=== PATIENT | male | born 1980 | race Caucasian/White ===

== ENCOUNTER 2021-01-22 13:38 | Emergency (ER) | payer BC, SELFPAY ==
--- NOTE | ~2021-01-22 | XR_ITS ---
EXAMINATION: XR CHEST CLINICAL INFORMATION: Cough for 3 weeks COMPARISON: None TECHNIQUE: 2 views of the chest were obtained. FINDINGS: The lungs are well expanded. There is no focal consolidation, edema, or effusion. No pneumothorax. The cardiomediastinal silhouette is within normal limits. No acute osseous abnormality. XR/XR chest 2V IMPRESSION: Clear lungs.
[2021-01-22 14:57] VITALS: BP 144/85; PULSE 92; RESP 16; TEMP 36.4; O2SAT 98; BMI 26.4
[2021-01-22 15:29] LABS: COVID-19 Test Negative (Negative)
--- NOTE | 2021-01-22 16:08 | ED_ITS ---
HPI - General Adult General Chief complaint: Upper Respiratory Symptoms Stated complaint: cough quest std Time Seen by Provider: 01/22/21 16:07 Source: patient Limitations: no limitations History of Present Illness HPI narrative: Patient presents the ER with a chronic cough over the past month cough is usually nonproductive. Patient was seen by PCP in the past was told was a viral illness. Patient has no history of tobacco use. Patient denies being on any current prescribed medications such as lisinopril. Patient denies any COVID-19 exposure. No nausea vomiting fever chills. Patient also requesting to get tested for herpes as he was with a partner recently at this time patient has no herpetic lesions in the facial area or groin. No other complaints at this time. Related Data Previous Rx's Medication Instructions Recorded albuterol sulfate 90 mcg/actuation 2 puff INHALATION Q6H PRN #6.7 g 01/22/21 aerosol inhaler (ProAir HFA) prednisone 20 mg tablet 40 mg PO DAILY 5 Days #10 tab 01/22/21 Allergies Allergy/AdvReac Type Severity Reaction Status Date / Time No Known Allergies Allergy Verified 01/22/21 15:01 [No Known Allergies*] Review of Systems Constitutional: Constitutional: Denies chills, Denies fatigue, Denies fever(s) and Denies headache(s) ENT: Denies headache(s) and Denies sore throat Cardiovascular: Cardiovascular: Denies chest pain and Denies dyspnea Respiratory: Respiratory: Reports cough and Denies dyspnea Gastrointestinal: Gastrointestinal: Denies diarrhea, Denies nausea and Denies vomiting Musculoskeletal: Musculoskeletal: Denies back pain Neurologic: Denies headache(s) Endocrine: Endocrine: Denies fatigue [facility] Past Medical History Attestation statement: The following information was validated with the patient. Surgical History History of back surgery Social History Social History Advance Directives: No Advance Directives Information Provided: Yes Physical Exam Vital Signs: Vital Signs: Last Vital Signs Temp 97.5 F 01/22/21 14:57 Pulse 92 01/22/21 14:57 Resp 16 01/22/21 14:57 BP 144/85 H 01/22/21 14:57 Pulse Ox 98 01/22/21 14:57 BMI result Body Mass Index 26.4 vital signs have been reviewed as normal and appeared to be correct. Blood pressure normal. Heart rate normal. Respiration rate normal. Temperature normal. Oxygen saturation normal. Appearance: Alert. Oriented X3. No acute distress. Head: Normal external exam. Normocephalic. Atraumatic. Eyes: PERRLA. EOMI. Conjunctiva and sclera normal. Eyelids normal. ENT: Pharynx normal. Uvula midline. Moist mucous membranes. No herpetic lesions noted no oral cavity Neck: Soft full range of motion, no JVD CVS: Heart regular rate and rhythm no murmurs and rubs Respiratory: Breath sounds are otherwise clear possibly faint wheeze no accessory muscle use. : Patient denies penile discharge does not want to be examined at this time denies any lesions in that area Back: Full range of motion noted. Skin: Skin warm and dry. Normal skin color. Normal skin turgor. No rashes/lesions/lacerations noted. Extremities: No lower extremity edema. Extremities exhibit normal range of motion. Extremities nontender. Neuro: Oriented X 3. No motor deficit. No sensory deficit. Reflexes normal. Course Course Course Narrative: COVID-19 Viral URI Chronic cough Bronchitis Pneumonia Herpes Patient requesting to be tested for herpes as he is with a new partner recently denies any recent lesions or past history of herpes. Will check lab tests at this time patient understands takes 24-48 hours for those results and I will look all positive results. Chronic cough is symptoms are consistent with reactive airway disease will put patient on an inhaler at this time a short course of prednisone. Medical Decision Making Lab Data Labs: Lab Results 01/22/21 Range/Units 15:09 COVID-19 (JUWAN) Negative (Negative) COVID-19 Clin Com See Note Discharge Plan Discharge Clinical Impression: Upper respiratory infection Qualifiers: URI type: unspecified viral URI Qualified Code(s): J06.9 - Acute upper respiratory infection, unspecified Patient Disposition: Home, Self-Care Instructions: Upper Respiratory Infection (ED) Additional Instructions: They will only call you if herpes test if it is positive 24-48 hours Medication as directed Follow-up with PCP Prescriptions: New prednisone 20 mg tablet 40 mg PO DAILY 5 Days Qty: 10 RF: 0 albuterol sulfate [ProAir HFA] 90 mcg/actuation HFA aerosol inhaler 2 puff inhalation Q6H PRN (Reason: wheezing) Qty: 6.7 RF: 0
[2021-01-24 05:01] LABS: Herpes Simplex Type 2 IgG <0.90 index
== END 2021-01-22 16:26 | disposition home or self-care (01) ==
PROVIDERS: Physician Assistant; Emergency Provider Emergency Medicine; PCP Nurse Practitioner Family
DX: J06.9 Acute upper respiratory infection, unspecified (principal); B00.9 Herpesviral infection, unspecified; Z20.822 Contact with and (suspected) exposure to COVID-19
CPT/HCPCS: 36415; 71046; 86695; 86696; 87635; 99283

== ENCOUNTER 2021-05-15 20:16 | Emergency (ER) | payer BC, SELFPAY ==
--- NOTE | 2021-05-15 | ECG_ITS ---
Test Reason : CX TIGHTNESS Blood Pressure : / mmHG Vent. Rate : 072 BPM Atrial Rate : 072 BPM P-R Int : 206 ms QRS Dur : 098 ms QT Int : 362 ms P-R-T Axes : 059 074 036 degrees QTc Int : 396 ms Normal sinus rhythm Normal ECG When compared with ECG of 15-OCT-2005 12:36, No significant change was found Referred By: Generic ED Physician Electronically Signed By:FABIANO BRITT
--- NOTE | ~2021-05-15 | XR_ITS ---
EXAMINATION: XR CHEST CLINICAL INFORMATION: Chest pain COMPARISON: 01/22/2021 TECHNIQUE: 2 views of the chest were obtained. FINDINGS: No significant abnormality is noted involving the heart, lungs, mediastinum, bony thorax or soft tissues. XR/XR chest 2V IMPRESSION: Unremarkable examination.
[2021-05-15 20:50] VITALS: BP 128/76; PULSE 86; RESP 14; TEMP 37.1; O2SAT 97; BMI 28.1
[2021-05-15 21:24] LABS: MANUAL DIFF FLAG NO
[2021-05-15 21:26] LABS: Basophils Percent Auto 0.4 % (0-2); Eosinophils Absolute Auto 0.3 X10*3/uL (0.0-0.4); Eosinophils Percent Auto 4.6 % (0-4); Hematocrit 41.8 % (42.0-52.0); Imm Gran Abs Auto 0.02 X10*3/uL (0.00-0.03); Imm Gran Pct Auto 0.3 % (0.0-0.4); Lymphocytes Absolute Auto 2.2 X10*3/uL (1.2-4.9); Lymphocytes Percent Auto 32.4 % (20-40); Mean Corpuscular HGB Conc 33.5 g/dl (31.0-36.0); Mean Corpuscular Hemoglobin 28.7 pg (27.0-33.0); Mean Corpuscular Volume 85.7 fL (80.0-98.0); Mean Platelet Volume 10.2 fL (9.4-12.4); Monocytes Absolute Auto 0.7 X10*3/uL (0.1-1.2); Monocytes Percent Auto 10.3 % (2-11); Neutrophils Absolute Auto 3.5 x10*3/uL (2.0-8.3); Platelet Count 272 X10*3/uL (160-400); Red Blood Count 4.88 X10*6/uL (4.60-5.80); Red Cell Distribution Width 11.5 % (11.0-16.0); White Blood Count 6.7 X10*3/uL (4.8-10.8)
[2021-05-15 21:42] LABS: Alanine Aminotransferase 25 U/L (0-40); Albumin Level 4.2 g/dL (3.5-5.0); Alkaline Phosphatase 64 U/L (39-117); Anion Gap 11 (12-20); Aspartate Amino Transferase 17 U/L (5-37); Bilirubin Direct < 0.2 mg/dL (0.0-0.5); Bilirubin Total 0.2 mg/dL (0.0-1.0); Blood Urea Nitrogen 10 mg/dL (9-16); Calcium 9.7 mg/dL (8.4-10.2); Carbon Dioxide 28 mmol/L (22-29); Chloride 103 mmol/L (96-108); Creatinine Clr Calc Pharmacy 100.4; Estimated Glomerular Filt Rate > 60; Glucose Random 125 mg/dL (60-115); Lipase 18 U/L (8-78); Potassium 3.4 mmol/L (3.3-5.1); Sodium 139 mmol/L (135-145); Total Protein 6.7 g/dL (6.5-8.0)
[2021-05-15 21:48] LABS: Troponin-I High Sensitivity < 3.5 ng/L (<3.5-35.0)
== END 2021-05-16 02:39 | disposition left against medical advice (07) ==
PROVIDERS: Emergency Provider Emergency Medicine
DX: R07.9 Chest pain, unspecified (principal); J45.909 Unspecified asthma, uncomplicated; Z79.899 Other long term (current) drug therapy
CPT/HCPCS: 36415; 71046; 80053; 82248; 83690; 84484; 85025; 93005; 99283

== ENCOUNTER 2022-11-21 22:37 | Emergency (ER) | payer OTHER, SELFPAY ==
[2022-11-21 23:58] VITALS: BP 149/89; PULSE 79; RESP 16; TEMP 37.1; O2SAT 97; BMI 29.0
[2022-11-22 00:51] VITALS: BP 138/87; PULSE 75; RESP 16; TEMP 36.7; O2SAT 98
--- NOTE | 2022-11-22 00:53 | MHC.EDTECH ---
THIS PCT JUST ASSUMED CARE OF PT ,BLOOD DRAWN AND SENT TO LAB ,VITALS TAKEN ,PT RESTING QUIETLY IN BED .
--- NOTE | 2022-11-22 01:04 | ED.GENADULT ---
HPI - General Adult General Chief complaint: Skin/Abscess/Foreign Body Stated complaint: ?abscess Time Seen by Provider: 11/22/22 00:44 Source: patient, RN notes reviewed and old records reviewed Mode of arrival: ambulatory Limitations: no limitations History of Present Illness HPI narrative: 41-year-old male presents for evaluation of redness, pain to his left armpit. His symptoms started 2-3 days ago He denies any trauma to the area Denies any fevers chills He has 6/10 pain is worse with movement The patient is not a diabetic Denies any history of similar Related Data Previous Rx's Medication Instructions Recorded albuterol sulfate 90 mcg/actuation 2 puff inhalation Q6H PRN wheezing 01/22/21 aerosol inhaler (ProAir HFA) #6.7 grams prednisone 20 mg tablet 40 mg (2 x 20 mg) PO DAILY 5 days 01/22/21 #10 tabs cephalexin 500 mg capsule 500 mg PO QID #28 caps 11/22/22 Allergies Allergy/AdvReac Type Severity Reaction Status Date / Time No Known Allergies Allergy Verified 01/22/21 15:01 [No Known Allergies*] Review of Systems Constitutional: Constitutional: Denies chills and Denies fever(s) ENT: Denies vertigo and Denies dizziness Cardiovascular: Cardiovascular: Denies chest pain Respiratory: Respiratory: Denies cough Gastrointestinal: Gastrointestinal: Denies nausea and Denies vomiting Integumentary/Breasts: Skin/Breast: Reports erythema Neurologic: Denies vertigo and Denies dizziness PMFSH Past Medical History Surgical History History of back surgery Social History Social History Advance Directives: No Advance Directives Information Provided: No Physical Exam ED Vital Signs: Vital Signs - 24 hr 11/21/22 23:58 11/22/22 00:51 Temperature 98.8 F 98.0 F Pulse Rate 79 75 Respiratory Rate 16 16 Blood Pressure 149/89 H 138/87 Pulse Oximetry 97 98 Oxygen Delivery Method Room Air Room Air BMI result Body Mass Index 29.0 Const General: healthy appearing, comfortable, no acute distress, alert and awake Nutritional Appearance: well nourished Orientation/consciousness: patient oriented x3 HENMT Head: Yes normocephalic and Yes atraumatic Eyes Eyelids: Yes eyelids normal Conjunctivae: conjunctivae normal Sclerae: sclerae normal Corneas: corneas normal Pupils: Equal, round and reactive pupils present EOM: EOMs intact bilaterally Neck Neck: Yes full ROM Resp Effort & Inspection: normal respiratory effort, able to speak in complete sentences and not labored Cardio Rate: regular rate Rhythm: regular rhythm Skin Other: Patient has a quarter-size area of erythema with fluctuance to the left axilla. The area is tender to palpation. No open wounds or drainage, no streaking redness General skin exam: elasticity normal Neuro General: patient oriented x3 Cranial nerves: Yes Equal, round and reactive pupils present and Yes Bilaterally intact EOM present Cognition (Neuro): normal cognition Extrem Other: Moving all extremities well without any obvious deformities Medical Decision Making Medical Decision Making MDM Narrative: 41-year-old male presents for evaluation of an early axilla. The area is fluctuant. It appears amenable to incision and drainage. I recommended incision and drainage but the patient declines at this time. He would prefer to trial oral antibiotics and warm compresses. I gave him strict return precautions. He has no systemic symptoms, it appears to be a very local infected Differential Diagnosis Differential Diagnoses: The differential diagnosis associated with the presentation includes Cellulitis Abscess Sebaceous cyst Epidermal inclusion cyst Lab Data MDM Lab Attestation statement: I reviewed the patient's lab results. No leukocytosis, no anemia. No electrolyte abnormalities. 11/22/22 00:41 11/22/22 00:41 Labs: Lab Results 11/22/22 Range/Units 00:41 WBC 7.2 (4.8-10.8) X10*3/uL RBC 5.01 (4.60-5.80) X10*6/uL Hgb 14.7 (14.0-18.0) g/dl Hct 42.9 (42.0-52.0) % MCV 85.6 (80.0-98.0) fL MCH 29.3 (27.0-33.0) pg MCHC 34.3 (31.0-36.0) g/dl RDW 11.8 (11.0-16.0) % Plt Count 276 (160-400) X10*3/uL MPV 10.2 (9.4-12.4) fL Immature Gran % (Auto) 0.3 (0.0-0.4) % Neut % (Auto) 49.0 (45-73) % Lymph % (Auto) 35.9 (20-40) % Gibson % (Auto) 10.5 (2-11) % Eos % (Auto) 3.9 (0-4) % Baso % (Auto) 0.4 (0-2) % Lymph # (Auto) 2.6 (1.2-4.9) X10*3/uL Gibson # (Auto) 0.8 (0.1-1.2) X10*3/uL Eos # (Auto) 0.3 (0.0-0.4) X10*3/uL Baso # (Auto) 0.0 (0.0-0.2) X10*3/uL Abs Immat Gran (auto) 0.02 (0.00-0.03) X10*3/uL Absolute Neuts (auto) 3.5 (2.0-8.3) x10*3/uL Absolute Nucleated RBC 0.000 (0.0-0.012) X10*3/uL Nucleated RBC % (auto) 0.0 (0.0-0.2) /100WBC Sodium 140 (135-145) mmol/L Potassium 3.6 (3.3-5.1) mmol/L Chloride 105 (96-108) mmol/L Carbon Dioxide 23 (22-29) mmol/L Anion Gap 16 (12-20) BUN 11 (9-16) mg/dL Creatinine 0.88 (0.5-1.4) mg/dL Estim Creat Clear Calc 112.1 Estimated GFR > 60 Random Glucose 120 H (60-115) mg/dL Calcium 9.8 (8.4-10.2) mg/dL Total Bilirubin 0.3 (0.0-1.0) mg/dL AST 18 (5-37) U/L ALT 26 (0-40) U/L Alkaline Phosphatase 77 (39-117) U/L Total Protein 7.3 (6.5-8.0) g/dL Albumin 4.3 (3.5-5.0) g/dL Discharge Plan Discharge Clinical Impression: Abscess of skin or subcutaneous tissue Patient Disposition: Home, Self-Care Instructions: Abscess (ED) Additional Instructions: You appear to have a skin infection/developing abscess to the left axilla/armpit You declined incision and drainage today Take the antibiotic as directed. Use warm compresses every 4 hours for 10-15 minutes to the affected area Return for new or worsening symptoms especially develop a fever, significantly/rapidly spreading redness Or return if after a few days her symptoms have not begun to improve Prescriptions: New cephalexin 500 mg capsule 500 mg PO QID Qty: 28 0RF No Action prednisone 20 mg tablet 40 mg PO DAILY 5 Days Qty: 10 0RF albuterol sulfate [ProAir HFA] 90 mcg/actuation HFA aerosol inhaler 2 puff inhalation Q6H PRN (Reason: wheezing) Qty: 6.7 0RF
== END 2022-11-22 01:21 | disposition home or self-care (01) ==
PROVIDERS: Emergency Provider Emergency Medicine
DX: L02.412 Cutaneous abscess of left axilla (principal); Z79.899 Other long term (current) drug therapy
CPT/HCPCS: 36415; 80053; 85025; 99283

== ENCOUNTER 2022-11-23 18:13 | Emergency (ER) | payer OTHER, SELFPAY ==
[2022-11-23 19:23] VITALS: BP 142/85; PULSE 82; RESP 16; TEMP 36.9; O2SAT 98; BMI 29.8
--- NOTE | 2022-11-23 19:23 | ED_ITS ---
HPI - General Adult General Chief complaint: Skin/Abscess/Foreign Body Stated complaint: ? Cyst underarm Time Seen by Provider: 11/23/22 21:11 Source: patient Mode of arrival: ambulatory History of Present Illness HPI narrative: Patient is 40-year-old male presents emergency department for evaluation of a left after axillary abscess for the past 4 days. He reports 2 days ago coming to emergency department any was started on a course of cephalexin. He reports some improvement in his pain and mild decrease in the redness and swelling since then but he was advised to return to have the wound re-evaluated. He he denies any active drainage, pain with movement of the shoulder, fevers, chills, streaking. He denies any additional skin rashes or lesions. Related Data Previous Rx's Medication Instructions Recorded albuterol sulfate 90 mcg/actuation 2 puff inhalation Q6H PRN wheezing 01/22/21 aerosol inhaler (ProAir HFA) #6.7 grams prednisone 20 mg tablet 40 mg (2 x 20 mg) PO DAILY 5 days 01/22/21 #10 tabs cephalexin 500 mg capsule 500 mg PO QID #28 caps 11/22/22 Allergies Allergy/AdvReac Type Severity Reaction Status Date / Time No Known Allergies Allergy Verified 01/22/21 15:01 [No Known Allergies*] Review of Systems Review of Systems: Yes all other systems are reviewed and are negative PMFSH Past Medical History Attestation statement: The following information was validated with the patient. Source: old records reviewed Surgical History History of back surgery Social History Social History Advance Directives: No Advance Directives Information Provided: No Physical Exam ED Vital Signs: Vital Signs - 24 hr 11/23/22 19:23 11/23/22 21:13 11/23/22 21:16 Temperature 98.5 F 98.2 F 98 F Pulse Rate 82 84 60 Respiratory Rate 16 19 18 Blood Pressure 142/85 H 141/87 H 127/78 Pulse Oximetry 98 100 98 Oxygen Delivery Method Room Air Room Air Room Air BMI result Body Mass Index 29.8 Appearance: Alert.?Oriented to person, place and time. No acute distres s.?Normal affect. Neck: Normal inspection.? Neck supple.?? CVS: Heart sounds normal. Normal heart rate and rhythm.? Pulses normal.?? Respiratory: No respiratory distress.? Lung sounds clear to auscultation bilaterally?? Abdomen: Soft and non-tender. Skin: Skin warm and dry.? Normal skin color.? Left axilla with nickel sized area of erythema and central fluctuance tenderness upon palpation with no streaking, or active drainage. No axillary lymphadenopathy. ? Neuro: Moves all extremities spontaneously. Sensation intact bilaterally. Ambulates with normal steady gait. Course Course Course Narrative: This is an RME: Additional HPI, ROS, PE not included below will be deferred to primary provider. This is a [id number]-male presenting to the ER with complaints of left axillary abscess x 4 days. Patient was seen here 2 days ago for this and was started on Keflex. He has been compliant with his antibiotics however reports that his symptoms are not improving. Denies any fevers or chills. He was advised to get an incision and drainage which he declined at the time. He is amenable to have this incised today. Quarter-size area of erythema with fluctuance to the left axilla with tenderness palpation, no drainage, no streaking. Vital signs stable. Plan: I&D Medications Administered Discontinued Medications Generic Name Dose Route Start Last Admin Trade Name Gentryq PRN Reason Stop Dose Admin Lidocaine HCl 5 ml 11/23/22 23:13 11/24/22 00:17 Lidocaine Hcl 1 % Mpf 5 Ml Vial SUBCUT 11/23/22 23:14 5 ml ONCE ONE Administration Procedures Abscess I/D Site: other (Axilla) Side (if applicable): left Local Anesthetic: lidocaine 1% Amount of anesthesia used (mL): 1 Technique: incised with blade Sent for culture/gram staining?: No Irrigation: Yes Packing used?: none Medical Decision Making Medical Decision Making MDM Narrative: Patient is a 41-year-old male presenting to the emergency department for evaluation of abscess to the left axilla with central fluctuance. He has been on oral antibiotics for the past 2 days. It was initially recommended that he have incision and drainage however he declined. He has returned as it has not resolved at this time and he was amenable to incision and drainage. See procedure note for further detail. Advised continued course of antibiotics, warm moist compresses/showers, and return precautions including signs of infection. At this time he has no systemic symptoms; nontoxic afebrile. Stable for discharge home. Differential Diagnosis Differential Diagnoses: The differential diagnosis associated with the presentation includes (Cellulitis, abscess, sebaceous cyst, folliculitis) Tests considered The following testing was considered but not selected: I considered repeat serum labs, no signs of systemic toxicity, labs obtained 11/18/2022 without significant abnormality, further labs deferred at this time. Prescription Management I considered prescription management with: Antibiotic (Continued use of cephalexin as previously prescribed.) Discharge Plan Discharge Clinical Impression: Abscess of skin or subcutaneous tissue Patient Disposition: Home, Self-Care Instructions: Abscess (ED), Incision and Drainage (ED) Prescriptions: No Action prednisone 20 mg tablet 40 mg PO DAILY 5 Days Qty: 10 0RF albuterol sulfate [ProAir HFA] 90 mcg/actuation HFA aerosol inhaler 2 puff inhalation Q6H PRN (Reason: wheezing) Qty: 6.7 0RF cephalexin 500 mg capsule 500 mg PO QID Qty: 28 0RF Interventions: ED Discharge Assessment Last Done: 11/24/22 00:44 Discharge Date/Time: 11/24/22 01:04
[2022-11-23 21:13] VITALS: BP 141/87; PULSE 84; RESP 19; TEMP 36.8; O2SAT 100
[2022-11-23 21:16] VITALS: BP 127/78; PULSE 60; RESP 18; TEMP 36.6; O2SAT 98
== END 2022-11-24 01:04 | disposition home or self-care (01) ==
PROVIDERS: Emergency Provider Internal Medicine
DX: L02.412 Cutaneous abscess of left axilla (principal)
CPT/HCPCS: 10060; 99282; 99284

== ENCOUNTER 2023-05-30 08:42 | Emergency (ER) | payer OTHER, SELFPAY ==
[2023-05-30 08:50] VITALS: BP 146/92; PULSE 84; RESP 18; TEMP 36.7; O2SAT 97; BMI 29.7
--- NOTE | 2023-05-30 09:31 | ED.GENADULT ---
HPI - General Adult General Chief complaint: General Medical Stated complaint: Vertigo? Reaction to meds Time Seen by Provider: 05/30/23 09:08 Source: patient and RN notes reviewed Mode of arrival: ambulatory Limitations: no limitations History of Present Illness HPI narrative: This is a 42-year-old male, with a history of depression, presents to the emergency department with complaints of intermittent dizziness x 4 days. Patient states that he has noticed that since last week he has had intermittent episodes of dizziness. He describes his dizziness as if he is on a boat. He states that he recently had an increase in his duloxetine, reports that he was increased from 40 mg to 60 mg approximately 3 weeks ago. He also admits that he was sick with a upper respiratory infection last week. He denies any current dizziness. He states that at times positional changes can worsen the dizziness. He states that he has a history of vertigo and states that his symptoms are similar however less severe. He is currently asymptomatic at this time. He denies any fevers, chills, chest pain, shortness of breath, headaches, abdominal pain, nausea, vomiting or diarrhea. He is not on blood thinners. No other complaints or concerns at this time. MD complaint: Dizziness Onset (ago): day(s) Location: head Radiation: non-radiation Severity: moderate Pain Consistency: constant Relieving factors: none Exacerbating factors: none Associated symptoms: denies other symptoms Treatments prior to arrival: none Related Data Previous Rx's ?Medication ?Instructions ?Recorded albuterol sulfate 90 mcg/actuation 2 puff inhalation Q6H PRN wheezing 01/22/21 aerosol inhaler (ProAir HFA) #6.7 grams prednisone 20 mg tablet 40 mg (2 x 20 mg) PO DAILY 5 days 01/22/21 #10 tabs cephalexin 500 mg capsule 500 mg PO QID #28 caps 11/22/22 meclizine 12.5 mg tablet 12.5 mg PO TID PRN dizziness #10 05/30/23 tabs Allergies Allergy/AdvReac Type Severity Reaction Status Date / Time No Known Allergies Allergy Verified 05/30/23 08:50 [No Known Allergies*] Review of Systems Review of Systems: Yes all other systems are reviewed and are negative Constitutional: Constitutional: Reports as per HPI COUNT INCLUDES [facility] Past Medical History Surgical History History of back surgery Social History Social History Advance Directives: No Advance Directives Information Provided: Yes Physical Exam ED Vital Signs: Vital Signs - 24 hr 05/30/23 08:50 05/30/23 11:08 05/30/23 11:10 Temperature 98.0 F Pulse Rate 84 72 77 Respiratory Rate 18 Blood Pressure 146/92 H 144/89 H 144/90 H Pulse Oximetry 97 Oxygen Delivery Method Room Air 05/30/23 11:13 Temperature Pulse Rate 83 Respiratory Rate Blood Pressure 137/91 H Pulse Oximetry Oxygen Delivery Method BMI result Body Mass Index 29.7 Const General: cooperative, comfortable and no acute distress Orientation/consciousness: patient oriented x3 Limitations: no limitations HENMT Other: Bilateral TMs was scar tissue noted, no canal erythema, TMs nonbulging. Head: Yes normal to inspection, Yes normocephalic and Yes atraumatic Ears: hearing grossly normal bilaterally General nose exam: Normal external nose present Face and sinus: Yes normal facial exam Mouth: Normal oral and palatal mucosa present, oropharynx normal and moist mucous membranes Throat: Yes posterior oropharynx normal Eyes General: appearance normal, both eyes and all related structures Eyelids: Yes eyelids normal Conjunctivae: conjunctivae normal Sclerae: sclerae normal Pupils: Equal, round and reactive pupils present EOM: EOMs intact bilaterally Neck Neck: Yes normal visual inspection, Yes full ROM and Yes no lymphadenopathy Lymphatic: no lymphadenopathy noted Chest Chest palpation & inspection: normal inspection of the chest Resp Effort & Inspection: normal respiratory effort and able to speak in complete sentences Auscultation: clear to auscultation bilaterally, no crackles, no rales, no rhonchi and no wheezes Cardio Rate: regular rate Rhythm: regular rhythm Heart sounds: S1 normal heart sound present and S2 normal heart sound present GI Inspection: Yes normal to inspection Skin General skin exam: no rashes or lesions noted Trauma: no lacerations or abrasions Wounds: no wounds Neuro General: patient oriented x3 and moves all extremities Cranial nerves: Yes CN's II-XII intact bilaterally and Yes Equal, round and reactive pupils present Cognition (Neuro): normal cognition Gait exam (Neuro): Normal gait present Motor exam (neuro): 5/5 motor strength present throughout and Pronator motor function not present Extrem General: Yes normal to inspection Right upper extremity: normal to inspection Left upper extremity: normal to inspection Right lower extremity: normal to inspection Left lower extremity: normal to inspection Course Reevaluation(s) Reevaluation #1: Labs return, no leukocytosis, stable H&H, chemistry within normal limits, negative troponin. Negative viral swabs. EKG normal sinus rhythm with no ST elevation or depression. Patient asymptomatic during my discussion of workup today. States that it only occurs with positional changes, discussed that this may be due to Eustachian tube dysfunction and/or vertigo. Discussed we can trial meclizine. He is willing to try however does not want to stay in the emergency room any longer, and requested discharge. Given strict return precautions. He understands and agrees with plan. Patient stable for discharge. Time: 11:15 Medical Decision Making Medical Decision Making [facility] Narrative: This is a 42-year-old male, history of depression on duloxetine, who presents emergency department with complaints of dizziness x5 days. Patient states that his psychiatrist recently increased his duloxetine 3 weeks ago. He also states that he was sick with a URI last week. On arrival, patient mildly hypertensive at 146/92, all other vital signs within normal limits. He is neurologically intact with no focal deficits on examination. He is asymptomatic during my assessment. He is ambulatory with steady gait. Differential diagnoses include electrolyte derangement, adverse medication side effect, Eustachian tube dysfunction, URI, dehydration, arrhythmia-unlikely, ACS-unlikely, ICH-unlikely. He has not on blood thinners, no head strike or trauma. He has a history of vertigo and states that his symptoms are similar however less severe. Plan: Labs, EKG, viral swabs Differential Diagnosis Differential Diagnoses: The differential diagnosis associated with the presentation includes See above Lab Data [facility] Lab Attestation statement: I reviewed the patient's lab results. 05/30/23 10:02 05/30/23 10:02 Labs: Lab Results 05/30/23 Range/Units 10:02 WBC 6.0 (4.8-10.8) X10*3/uL RBC 5.37 (4.60-5.80) X10*6/uL Hgb 15.5 (14.0-18.0) g/dl Hct 45.8 (42.0-52.0) % MCV 85.3 (80.0-98.0) fL MCH 28.9 (27.0-33.0) pg MCHC 33.8 (31.0-36.0) g/dl RDW 11.5 (11.0-16.0) % Plt Count 267 (160-400) X10*3/uL MPV 10.7 (9.4-12.4) fL Immature Gran % (Auto) 0.3 (0.0-0.4) % Neut % (Auto) 55.5 (45-73) % Lymph % (Auto) 28.4 (20-40) % [place] % (Auto) 11.4 H (2-11) % Eos % (Auto) 3.9 (0-4) % Baso % (Auto) 0.5 (0-2) % Lymph # (Auto) 1.7 (1.2-4.9) X10*3/uL [place] # (Auto) 0.7 (0.1-1.2) X10*3/uL Eos # (Auto) 0.2 (0.0-0.4) X10*3/uL Baso # (Auto) 0.0 (0.0-0.2) X10*3/uL Abs Immat Gran (auto) 0.02 (0.00-0.03) X10*3/uL Absolute Neuts (auto) 3.3 (2.0-8.3) x10*3/uL Absolute Nucleated RBC 0.000 (0.0-0.012) X10*3/uL Nucleated RBC % (auto) 0.0 (0.0-0.2) /100WBC Sodium 139 (135-145) mmol/L Potassium 3.7 (3.3-5.1) mmol/L Chloride 102 (96-108) mmol/L Carbon Dioxide 29 (22-29) mmol/L Anion Gap 12 (12-20) BUN 11 (9-16) mg/dL Creatinine 0.87 (0.5-1.4) mg/dL Estim Creat Clear Calc 113.5 Estimated GFR > 60 Random Glucose 89 (60-115) mg/dL Calcium 9.8 (8.4-10.2) mg/dL Magnesium 2.2 (1.6-2.6) mg/dL Total Bilirubin 0.4 (0.0-1.0) mg/dL Direct Bilirubin 0.2 (0.0-0.5) mg/dL AST 20 (5-37) U/L ALT 25 (0-40) U/L Alkaline Phosphatase 67 (39-117) U/L Troponin I High Sens < 2.7 (<3.5-35.0) ng/L Total Protein 7.3 (6.5-8.0) g/dL Albumin 4.4 (3.5-5.0) g/dL Influenza Type A (PCR) NEGATIVE (Negative) Influenza Type B (PCR) NEGATIVE (Negative) RSV RNA Qual (PCR) NEGATIVE (Negative) SARS-CoV-2 RNA (RT-PCR) NEGATIVE (Negative) Radiology Impression Discussion of test interpretation with radiology: I have reviewed the radiologist's reading. Discharge Plan Discharge Clinical Impression: Dizziness, Vertigo Patient Disposition: Home, Self-Care Instructions: Vertigo (ED), Dizziness (ED) Additional Instructions: Your seen in the emergency department due to dizziness. Your labs were reassuring. Your EKG was normal. You may have dizziness due to vertigo or due to the recent illness you had. Please take meclizine as prescribed as needed for symptoms. Drink plenty of fluids get plenty of rest. You may also want to take a decongestant as this may help alleviate her symptoms. If any new or worsening symptoms occur including but not limited to worsening dizziness, severe headache, nausea, vomiting, diarrhea, please return for re-evaluation. Prescriptions: New meclizine 12.5 mg tablet 12.5 mg PO TID PRN (Reason: dizziness) Qty: 10 0RF No Action prednisone 20 mg tablet 40 mg PO DAILY 5 Days Qty: 10 0RF albuterol sulfate [ProAir HFA] 90 mcg/actuation HFA aerosol inhaler 2 puff inhalation Q6H PRN (Reason: wheezing) Qty: 6.7 0RF cephalexin 500 mg capsule 500 mg PO QID Qty: 28 0RF Stand Alone Forms: Work/School Release Print Language: Citizen Of [place]
--- NOTE | 2023-05-30 09:42 | ECG_ITS ---
Test Reason : VERTIGO Blood Pressure : / mmHG Vent. Rate : 069 BPM Atrial Rate : 069 BPM P-R Int : 162 ms QRS Dur : 094 ms QT Int : 364 ms P-R-T Axes : 059 072 051 degrees QTc Int : 390 ms Normal sinus rhythm Normal ECG When compared with ECG of 15-MAY-2021 21:05, No significant change was found Referred By: Kelly Montanez Electronically Signed By:FABIANO BRITT
[2023-05-30 10:11] LABS: MANUAL DIFF FLAG NO
[2023-05-30 10:17] LABS: Basophils Percent Auto 0.5 % (0-2); Eosinophils Absolute Auto 0.2 X10*3/uL (0.0-0.4); Eosinophils Percent Auto 3.9 % (0-4); Hematocrit 45.8 % (42.0-52.0); Hemoglobin 15.5 g/dl (14.0-18.0); Imm Gran Abs Auto 0.02 X10*3/uL (0.00-0.03); Imm Gran Pct Auto 0.3 % (0.0-0.4); Lymphocytes Absolute Auto 1.7 X10*3/uL (1.2-4.9); Lymphocytes Percent Auto 28.4 % (20-40); Mean Corpuscular HGB Conc 33.8 g/dl (31.0-36.0); Mean Corpuscular Hemoglobin 28.9 pg (27.0-33.0); Mean Corpuscular Volume 85.3 fL (80.0-98.0); Mean Platelet Volume 10.7 fL (9.4-12.4); Monocytes Absolute Auto 0.7 X10*3/uL (0.1-1.2); Monocytes Percent Auto 11.4 % (2-11); Neutrophils Absolute Auto 3.3 x10*3/uL (2.0-8.3); Neutrophils Percent Auto 55.5 % (45-73); Platelet Count 267 X10*3/uL (160-400); Red Blood Count 5.37 X10*6/uL (4.60-5.80); Red Cell Distribution Width 11.5 % (11.0-16.0)
[2023-05-30 10:27] LABS: Alanine Aminotransferase 25 U/L (0-40); Albumin Level 4.4 g/dL (3.5-5.0); Alkaline Phosphatase 67 U/L (39-117); Anion Gap 12 (12-20); Aspartate Amino Transferase 20 U/L (5-37); Bilirubin Direct 0.2 mg/dL (0.0-0.5); Bilirubin Total 0.4 mg/dL (0.0-1.0); Blood Urea Nitrogen 11 mg/dL (9-16); Calcium 9.8 mg/dL (8.4-10.2); Carbon Dioxide 29 mmol/L (22-29); Chloride 102 mmol/L (96-108); Creatinine Clr Calc Pharmacy 113.5; Estimated Glomerular Filt Rate > 60; Glucose Random 89 mg/dL (60-115); Magnesium 2.2 mg/dL (1.6-2.6); Potassium 3.7 mmol/L (3.3-5.1); Sodium 139 mmol/L (135-145); Total Protein 7.3 g/dL (6.5-8.0)
[2023-05-30 10:35] LABS: Troponin-I High Sensitivity < 2.7 ng/L (<3.5-35.0)
[2023-05-30 10:49] LABS: Influenza A PCR NEGATIVE (Negative); Influenza B PCR NEGATIVE (Negative); Resp Syncy Virus RNA Qual PCR NEGATIVE (Negative); SARS COV2 PCR INHOUSE NEGATIVE (Negative)
[2023-05-30 11:08] VITALS: BP 144/89; PULSE 72
[2023-05-30 11:10] VITALS: BP 144/90; PULSE 77
[2023-05-30 11:13] VITALS: BP 137/91; PULSE 83
[2023-05-30 11:56] VITALS: BP 151/92; PULSE 80; RESP 12; TEMP 36.6; O2SAT 98
== END 2023-05-30 11:58 | disposition home or self-care (01) ==
PROVIDERS: Physician Assistant Medical; Emergency Provider Emergency Medicine
DX: R42 Dizziness and giddiness (principal); F32.A Depression, unspecified; Z79.899 Other long term (current) drug therapy
CPT/HCPCS: 0241U; 80048; 80076; 83735; 84484; 85025; 93005; 99283

== ENCOUNTER → 2023-05-30 09:42 | Outpatient (BNV) | payer OTHER, SELFPAY | PROVIDERS: Emergency Provider Emergency Medicine; Visit Provider Internal Medicine | DX: R42 Dizziness and giddiness (principal) | CPT/HCPCS: 93010 ==

== ENCOUNTER 2024-05-04 08:54 | Outpatient (AMB) | payer OTHER, SELFPAY ==
[2024-05-04 09:03] VITALS: BMI 28.2
--- NOTE | 2024-05-04 09:03 | A.SPINEOV_ITS ---
Vital Signs 05/04/24 09:03 Height 5 ft 7 in Weight 180 lb BMI 28.2 Intake Visit Reasons: LBP Intake Note: Mr. Flaherty is here today c/o Low back pain that radiates down to the legs. 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 The patient had complaints of back pain and left leg pain at the time and underwent the procedure, had total resection of the mass and subsequent MRI follow-ups were all negative. He was discharged to follow-up. He has had back pain ever since that time centered root around his lower lumbar region and it radiates down both of his legs. It has been going on now for 25 years steadily getting worse. He has been through rigorous conservative treatment including physical therapy, completed his last set of sessions in January of last year, underwent cortisone injections at [facility]. They did want injection and he had worsening of his symptoms and he was told he was not a candidate. He saw at [facility] who did not think he was a surgical candidate and thought he would have increased back pain after the surgery. Specifically the talk was about spinal fusion and he did not think that it was a good idea. He comes in today for a 2nd opinion. He denies any other neurological complaints. No upper extremity symptoms. He does report gait imbalance. No vision loss or double vision. PMH: Has some hypertension but other than that he is healthy, denies any problem with his heart, lungs, stroke, liver, kidneys, bleeding disorders, blood clots, cancer major abdominal surgeries. Social hx: He does not smoke drink use any recreational drugs Medications: He takes Motrin 800 every day, takes an antihypertensive that he can not recall the name of Allergies: None Physical exam: Awake alert oriented no acute distress, he is able to stand up out of a chair on his own. He has well-healed incision on his lower lumbar region. I took him for a walk in the hallway and with tandem gait testing he is quite unsteady. He was falling into the urena. His overall gross motor strength reveals a little bit of weakness in the hip flexion and in the left dorsiflexion but I believe these to be pain related. Reflexes quite brisk at the biceps, triceps and patella and right Achilles. He has clonus in the right ankle. Lenin's sign in the right hand. Absent Achilles reflexes in the left. Imaging review: Lumbar MRI done at [facility] in February 2024 shows some mild degenerative disc disease at L4-5 and L5-S1 with no signs of nerve compression. There is postsurgical defect at the left L5-S1 region with signs of bone scalloping and remodeling in the S1 foramen Impression: 43-year-old gentleman with a history of schwannoma resection in the left S1 foramen in 1999 at [facility], subsequent follow-ups revealing no signs of recurrence of tumor. He has had chronic low back pain radiating down both of his leg since that time in his MRI just shows some mild degene ration of the discs with no evidence of nerve compression. This is not typically something Dr. Condon would offer spinal fusion. Dr. Ospina from [facility] also thought he would not be a good candidate for surgery. He has not responded to any of the injections at [facility] either. Unfortunately I do not think there is anything we can do for him surgically. On a side note, although he does not carry a diagnosis of neurofibromatosis, he does have signs of ataxia and hyperreflexia on the right side upper and lower extremity. I think in due diligence we should at least make sure there is not a schwannoma in the cervical spinal canal. I will order cervical MRI and call him with the results. Thank you for allowing us to care for your patient. The total time spent with this visit with this patient was 45 minutes reviewing history, physical exam, lumbar imaging review, and implementation of treatment plan or further diagnostic testing Gianni Condon MD,PhD [facility] Orders: Orders MR cervical spine wo con Today R26.0 - Ataxic gait Coding Level of Care Code New Pt Level 4 (57920) Diagnoses Ataxic gait R26.0 Back pain M54.9
--- OUTSIDE RECORDS SUMMARY | 2024-05-04 09:24 | XMS_ITS | Clinical Summary ---
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 Active ibuprofen (ADVIL,MOTRIN) 800 mg tablet Take 1 tablet (800 mg total) by mouth every 8 (eight) hours if needed for mild pain. Active DULoxetine (CYMBALTA) [address] capsule Take 1 capsule (60 mg total) by mouth 1 (one) time each day. Do not crush or chew. Active Encounters Date Type Department Care Team Description 02/10/2024 9:40 AM EST - 02/10/2024 1:[address] [facility] Emergency [address] [place] [address] Boby Sosa MD Chronic back pain, unspecified back location, unspecified back pain laterality (Primary Dx); Suicide ideation; Depression, unspecified depression type; Anxiety Discharge Disposition: Home or Self Care from Last 3 Months Surgical History Surgery Date Site/Laterality Comments HERNIA REPAIR 2002 PROCEDURE: HISTORICAL HERNIA REPAIR/ING; COMMENT: left-sided HERNIA REPAIR 2004 PROCEDURE: HISTORICAL HERNIA REPAIR/UMB BACK SURGERY 1999 PROCEDURE: HISTORICAL BACK SURGERY; COMMENT: Dr. 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) Tendon injury, late effect DX:Te ndon injury, late effect; COMMENT: left hand since injury 10/24 - surgery scheduled 02/17/10 Asthma DX:Asthma; COMME NT: no controller meds needed; never hospitalized/intubated Tendon rupture, nontraumatic, flexor 02/15/2010 DX:Tendon rupture, nontraumatic, flexor Anxiety Family History Medical History Relation Name Comments Blindness Aunt Asthma Brother 1 Cataracts Neg Hx Glaucoma Neg Hx Macular degeneration Neg Hx Strabismus Neg Hx Relation Name Status Comments Aunt Brother 1 Brother 2 Alive DMII, asthma Brother 3 Alive DMII Brother 4 Alive A&W Daughter Alive (8) A&W Father Alive HTN, ?CAD Mother Alive HTN Social History Tobacco Use Types Packs/Day Years Used Date Smoking Tobacco: Former Cigarettes Q uit: 02/14/2001 Smokeless Tobacco: Never Alcohol Use Standard Drinks/Week Comments No 0 (1 standard drink = 0.6 oz pur e alcohol) Sex and Gender Information Value Date Recorded Sex Assigned at Not on file Legal Sex Male 2:55 PM EST Gender Identity Not on file Sexual Orientation Not on file Obstetrics History Last Filed Vital Signs Vital Sign Reading Time Taken Comments Blood Pressure 153/88 02/10/2024 9:56 AM EST Pulse 91 02/10/2024 9:56 AM EST Temperature 37 ??C (98.6 ??F) 02/10/2024 9:56 AM EST Respiratory Rate 18 02/10/2024 9:56 AM EST Oxygen Saturation 100% 02/10/2024 11:00 AM EST Inhaled Oxygen Concentration - - Weight 81.6 kg (180 lb) 02/10/2024 11:51 AM EST Height 167.6 cm (5' 6 ) 02/10/2024 11:51 AM EST Body Mass Index 29.05 02/10/2024 11:51 AM EST Plan of Treatment Health Maintenance Due Date Last Done Comments Pneumococcal Vaccine: Pediatrics (0 to 5 Years) and At-Risk Patients (6 to 64 Years) (1 of 2 - PCV) 1997 Hepatitis B Vaccines (3 of 3 - 19+ 3-dose series) 08/31/2019 03/30/2019, 03/02/2019 Cholesterol Screening (Lipid Panel) 01/13/2022 Colorectal Cancer Screening: Colonoscopy 01/13/2022 Depression Screening 01/13/2022 HIV Screening 01/13/2022 Hepatitis C Screening 01/13/2022 Social Influencers of Health Screening 01/13/2022 COVID-19 Vaccine ( season) 2023 08/13/2021, 07/25/2020, 06/27/2020 Influenza Vaccine (#1) 2023 DTaP,Tdap,and Td Vaccines (5 - Td or Tdap) 08/14/2031 08/13/2021, 03/10/2011, 01/28/2010, Additional history exists MMR Vaccines Aged Out 03/02/2019 No longer eligi ble based on patient's age to complete this topic HIB Vaccines Aged Out No longer eligi ble based on patient's age to complete this topic HPV Vaccines Aged Out No longer eligi ble based on patient's age to complete this topic Hepatitis A Vaccines Aged Out No long er eligible based on patient's age to complete this topic IPV Vaccines Aged Out No longer eligi ble based on patient's age to complete this topic Meningococcal ACWY Vaccine Aged Out N o longer eligible based on patient's age to complete this topic Meningococcal B Vacine Aged Out No lo nger eligible based on patient's age to complete this topic RSV Immunization Patients Under 20 months Aged Out No longer eligible based on patient's age to complete this topic Varicella Vaccines Aged Out No longer eligible based on patient's age to complete this topic Procedures Procedure Name Priority Date/Time Associated Diagnosis Comments ECG 12-LEAD STAT 02/10/2024 10:35 AM EST CBC WITH AUTO DIFFERENTIAL STAT 02/10/2024 10:13 AM EST SALICYLATE LEVEL STAT 02/10/2024 10:1 3 AM EST ACETAMINOPHEN LEVEL STAT 02/10/2024 1 0:13 AM EST ETHANOL STAT 02/10/2024 10:13 AM EST COMPREHENSIVE METABOLIC PANEL STAT 02/10/2024 10:13 AM EST CBC AND DIFFERENTIAL STAT 02/10/2024 10:13 AM EST ECG ANNOTATED 02/10/2024 from Last 3 Months Results * ECG 12 lead (02/10/2024 10:35 AM EST) Ventricular Rate ECG 86 BPM GEMUSE Atrial Rate 86 BPM GEMUSE P-R Interval 152 ms GEMUSE QRS Duration 90 ms GEMUSE Q-T Interval 360 ms GEMUSE QTc 430 ms GEMUSE P Wave [place] 47 degrees GEMUSE R [place] 64 degrees GEMUSE T [place] 54 degrees GEMUSE ECG Interpretation Sinus rhythm with Premature atrial complexes Otherwise normal ECG When compared with ECG of 04-APR-2004 19:07, Premature atrial complexes are now Present Confirmed by Samson GONCALVES JOHN ([id number]) on 02/11/2024 6:34:14 AM GEMUSE 02/10/2024 10:3 5 AM EST 02/11/2024 6:34 AM EST Boby Jf Sosa MD ECG ORDERABLES Final Result GEMUSE * (ABNORMAL) CBC auto differential (02/10/2024 10:13 AM EST) Pathologist [facility] WBC 7.1 4.8 - 10.8 K/mcL LAB HEMETOLOGY METHOD 02/10/2024 10:42 AM [facility] RBC 5.20 4.50 - 5.50 M/mcL LAB HEMETOLOGY METHOD 02/10/2024 10:42 AM [facility] Hemoglobin 14.9 13.5 - 17.5 g/dL LAB HEMETOLOGY METHOD 02/10/2024 10:42 AM [facility] Hematocrit 44.9 42.0 - 54.0 % LAB HEMETOLOGY METHOD 02/10/2024 10:42 AM [facility] MCV 86.3 79.0 - 98.0 FL LAB HEMETOLOGY METHOD 02/10/2024 10:42 AM [facility] MCH 28.7 27.0 - 32.0 pcg LAB HEMETOLOGY METHOD 02/10/2024 10:42 AM [facility] MCHC 33.2 32.0 - 37.0 g/dL LAB HEMETOLOGY METHOD 02/10/2024 10:42 AM [facility] RDW 11.9 11.0 - 15.0 % LAB HEMETOLOGY METHOD 02/10/2024 10:42 AM [facility] Platelets 268 130 - 400 K/mcL LAB HEMETOLOGY METHOD 02/10/2024 10:42 AM [facility] MPV 10.6 7.0 - 11.0 FL LAB HEMETOLOGY METHOD 02/10/2024 10:42 AM [facility] NRBC 0.0 <1.0 % LAB HEMETOLOGY METHOD 02/10/2024 10:42 AM [facility] NRBC Absolute 0.00 <0.10 K/[facility] LAB HEMETOLOGY METHOD 02/10/2024 10:42 AM [facility] Neutrophils Relative 62.4 % LAB HEMETOLOGY METHOD 02/10/2024 10:42 AM [facility] Lymphocytes Relative 22.5 % LAB HEMETOLOGY METHOD 02/10/2024 10:42 AM [facility] Monocytes Relative 8.4 % LAB HEMETOLOGY METHOD 02/10/2024 10:42 AM [facility] Eosinophils Relative 5.4 % LAB HEMETOLOGY METHOD 02/10/2024 10:42 AM [facility] Basophils Relative 0.7 % LAB HEMETOLOGY METHOD 02/10/2024 10:42 AM [facility] Immature Granulocytes Relative 0.6 % LAB HEMETOLOGY METHOD 02/10/2024 10:42 AM [facility] Neutrophils Absolute 4.41 1.50 - 7.00 K/mcL LAB HEMETOLOGY METHOD 02/10/2024 10:42 AM EST [facility] Lymphocytes Absolute 1.59 1.00 - 5.00 K/[facility] LAB HEMETOLOGY METHOD 02/10/2024 10:42 AM EST [facility] Monocytes Absolute 0.59 0.20 - 1.00 K/[facility] LAB HEMETOLOGY METHOD 02/10/2024 10:42 AM EST [facility] Eosinophils Absolute 0.38 0.00 - 0.50 K/[facility] LAB HEMETOLOGY METHOD 02/10/2024 10:42 AM EST [facility] Basophils Absolute 0.05 0.00 - 0.20 K/[facility] LAB HEMETOLOGY METHOD 02/10/2024 10:42 AM EST [facility] Immature Granulocytes Absolute 0.04(H) 0.00 - 0.03 K/[facility] LAB HEMETOLOGY METHOD 02/10/2024 10:42 AM EST [facility] Blood Venous blood specimen / Unknown Venipuncture / Unknown 02/10/2024 10:13 AM EST 02/10/2024 10:26 AM EST Bobyanmol Sosa MD LAB BLOOD ORDERABLES Final Resu lt [facility] [address] [place] [address], * Ethanol (02/10/2024 10:13 AM EST) Ethanol Level <3 0 - 10 mg/dL LAB CHEMISTRY METHOD 02/10/2024 11:04 AM EST [facility] Blood Venous blood specimen / Unknown Venipuncture / Unknown 02/10/2024 10:13 AM EST 02/10/2024 10:26 AM EST us Boby Sosa MD LAB BLOOD ORDERABLES Final Resu lt [facility] [address] [place] [address], [place] [phone] * (ABNORMAL) Acetaminophen level (02/10/2024 10:13 AM EST) Acetaminophen Level <2.0(L) 10.0 - 30.0 mcg/mL LAB CHEMISTRY METHOD 02/10/2024 11:04 AM EST [facility] Blood Venous blood specimen / Unknown Venipuncture / Unknown 02/10/2024 10:13 AM EST 02/10/2024 10:26 AM EST us Boby Sosa MD LAB BLOOD ORDERABLES Final Resu lt [facility] [address] [place] [address], * (ABNORMAL) Salicylate level (02/10/2024 10:13 AM EST) Salicylate Level <1.7(L) 2.0 - 29.0 mg/dL LAB CHEMISTRY METHOD 02/10/2024 11:04 AM EST [facility] Blood Venous blood specimen / Unknown Venipuncture / Unknown 02/10/2024 10:13 AM EST 02/10/2024 10:26 AM EST us Boby Sosa MD LAB BLOOD ORDERABLES Final Resu lt [facility] [address] [place] [address], [place] [phone] * (ABNORMAL) Comprehensive metabolic panel (02/10/2024 10:13 AM EST) Sodium 139 133 - 145 mmol/L LAB CHEMISTRY METHOD 02/10/2024 11:23 AM EST [facility] Potassium 4.3 3.5 - 5.5 mmol/L LAB CHEMISTRY METHOD 02/10/2024 11:23 AM [facility] Chloride 104 96 - 110 mmol/L LAB CHEMISTRY METHOD 02/10/2024 11:23 AM [facility] CO2 31 21 - 32 mmol/L LAB CHEMISTRY METHOD 02/10/2024 11:23 AM [facility] Anion Gap 4 3 - 11 LAB CHEMISTRY METHOD 02/10/2024 11:23 AM [facility] Glucose 127(H) 70 - 100 mg/dL LAB CHEMISTRY METHOD 02/10/2024 11:23 AM [facility] BUN 9 5 - 25 mg/dL LAB CHEMISTRY METHOD 02/10/2024 11:23 AM [facility] Creatinine 0.99 0.70 - 1.30 mg/dL LAB CHEMISTRY METHOD 02/10/2024 11:23 AM [facility] eGFR 96 >=60 mL/min/1. 73m2 LAB CHEMISTRY METHOD 02/10/2024 11:23 AM [facility] Comment:Calculation based on the??Chronic Kidney Disease Epidemiology Collaboration (CKD-EPI) equation refit??without adjustment for race. BUN/Creatinine Ratio 9.1 LAB CHEMISTRY METHOD 02/10/2024 11:23 AM [facility] Calcium 9.5 8.5 - 10.5 mg/dL LAB CHEMISTRY METHOD 02/10/2024 11:23 AM [facility] AST (SGOT) 22 10 - 42 unit/L LAB CHEMISTRY METHOD 02/10/2024 11:23 AM [facility] ALT (SGPT) 43 10 - 60 unit/L LAB CHEMISTRY METHOD 02/10/2024 11:23 AM [facility] Alkaline Phosphatase 73 42 - 121 unit/L LAB CHEMISTRY METHOD 02/10/2024 11:23 AM [facility] Total Protein 7.0 6.0 - 8.0 g/dL LAB CHEMISTRY METHOD 02/10/2024 11:23 AM [facility] Albumin 3.9 3.2 - 5.0 g/dL LAB CHEMISTRY METHOD 02/10/2024 11:23 AM EST [facility] Total Bilirubin 0.6 0.0 - 1.4 mg/dL LAB CHEMISTRY METHOD 02/10/2024 11:23 AM EST [facility] Blood Venous blood specimen / Unknown Venipuncture / Unknown 02/10/2024 10:13 AM EST 02/10/2024 10:26 AM EST Boby Jf Sosa MD LAB BLOOD ORDERABLES Final Resu lt [facility] [address] [place] [address], * ECG-Annotated (02/10/2024) us Provider Onbase MD ECG ORDERABLES Final Result from Last 3 Months Insurance [facility] MEDICAID ADVANTAGE Care Teams Golf Club Repairer Relationship Specialty Start Date End Date Physician, No Pcp PCP - General 02/10/24
== END 2024-05-04 09:52 | disposition home or self-care (01) ==
LOC: HO.HNS 08:55
PROVIDERS: Visit Provider Physician Assistant
DX: R26.0 Ataxic gait (principal); M54.9 Dorsalgia, unspecified
CPT/HCPCS: 99204

== ENCOUNTER → 2024-05-04 08:54 | Outpatient (BNVA) | payer OTHER, SELFPAY | PROVIDERS: Visit Provider Physician Assistant | DX: R26.0 Ataxic gait (principal); M54.9 Dorsalgia, unspecified | CPT/HCPCS: 99202 ==

== ENCOUNTER 2024-05-14 21:03 | Inpatient (IN) | payer OTHER, SELFPAY ==
--- NOTE | 2024-05-14 | ECG_ITS ---
Test Reason : overdose on medications Blood Pressure : */* mmHG Vent. Rate : 95 BPM Atrial Rate : 95 BPM P-R Int : 182 ms QRS Dur : 96 ms QT Int : 336 ms P-R-T Axes : 63 63 51 degrees QTcB Int : 422 ms Sinus rhythm with Premature atrial complexes Otherwise normal ECG When compared with ECG of 30-May-2023 09:49, Premature atrial complexes are now Present Referred By: Generic ED Physician Electronically Signed By: FABIANO BRITT
[2024-05-14 21:14] VITALS: BP 149/99; BP 158/77; PULSE 90; PULSE 93; RESP 16; TEMP 36.9; O2SAT 96; O2SAT 98; BMI 28.2
--- NOTE | 2024-05-14 21:36 | PC.NURSE ---
Recommendations from Poison Control: -EKG Q2H x3, Q4H until medically cleared -Admit x24 hours due to risk of seizures -Seizure precautions -Magnesium >2 -Potassium >4 -Tylenol level -Troponin level -PT/INR -Can give Charcoal if provider wishes Give benzos if he seizes. per Ivis at Poison Control ( ) Number provided for follow up.
[2024-05-14 21:41] LABS: Appearance Urine Clear; Color Urine Yellow; Glucose Urine UA >=1000 mg/dL (Negative); Leukocyte Esterase Urine Negative (Negative); Nitrite Urine Negative (Negative); PH 5.5 (5.0-9.0); UMIC TRIGGER UA YES; Urine Blood Negative (Negative); Urine Ketones Negative (Negative); Urine Protein Negative (Neg-Trace)
[2024-05-14] MEDS: Activated charcoaL 50 GM/240 ML ORAL.SUSP PO (21:45)
[2024-05-14 21:46] LABS: Bacteria Urine None Seen (None Seen); Hyaline Casts Urine 0-2 /LPF (0-2); RBC Urine 0-2 /HPF (0-2); Squamous Epithelial Cell Urine 0-2 /HPF (0-2); WBC Urine 0-5 /HPF (0-5)
--- NOTE | 2024-05-14 22:03 | ED_ITS ---
<Statement entered by Hailee Curran PA-C - 05/15/24 13:21> I only did med rec on this patient. HPI - Overdose General Chief Complaint: Overdose Stated Complaint: SI Time Seen by Provider: 05/14/24 21:33 Source: patient and EMS Mode of arrival: EMS Limitations: no limitations History of Present Illness ED Provider: HPI Narrative: patient's history of significant depression under increased stress from financial reasons does not have any job just prior to arrival patient took cyclobenzaprine 3 tablets BuSpar 2 tablet duloxetine 2 tablets according to patient is supposed to take 2 tablets of each in a.m. but he took extra tablet tonight tonight ,, with suicidal intention denies any other medication except for ibuprofen he took 4 tablets of 800mg during daytime patient is still feel depressed no other symptoms no nausea no vomiting Related Data Home Medications ?Medication ?Instructions ?Recorded ?Confirmed aripiprazole 5 mg tablet 5 mg PO DAILY 05/15/24 05/15/24 atenolol 25 mg tablet 25 mg PO DAILY 05/15/24 05/15/24 buspirone 30 mg tablet 30 mg PO BID 05/15/24 05/15/24 cyclobenzaprine 10 mg tablet 10 mg PO BEDTIME PRN Pain 05/15/24 05/15/24 duloxetine 60 mg capsule,delayed 60 mg PO BID 05/15/24 05/15/24 release metformin 500 mg tablet 500 mg PO DAILY 05/15/24 05/15/24 Previous Rx's ?Medication ?Instructions ?Recorded albuterol sulfate 90 mcg/actuation 2 puff inhalation Q6H PRN wheezing 01/22/21 aerosol inhaler (ProAir HFA) #6.7 grams prednisone 20 mg tablet 40 mg (2 x 20 mg) PO DAILY 5 days 01/22/21 #10 tabs cephalexin 500 mg capsule 500 mg PO QID #28 caps 11/22/22 meclizine 12.5 mg tablet 12.5 mg PO TID PRN dizziness #10 05/30/23 tabs Allergies Allergy/AdvReac Type Severity Reaction Status Date / Time aripiprazole [From Abilify] Allergy Intermediate Rash Verified 05/14/24 21:16 Review of Systems 2 Review of Systems: Yes all other systems are reviewed and are negative PMFSH Past Medical History Surgical History History of back surgery Social History Social History Household Members: Children Housing: Apartment Do you presently have visiting nurse or other home services: No Alcohol intake: never Patient Tobacco Use Status: Never used Tobacco Smoked in Last 30 Days: No Use of substances other than those prescribed or required for medical reasons: No Currently Displaying Signs/Symptoms of Drug Intoxication Withdrawal: No Any prior treatment program specific to substance use: No Have you been hit, kicked, punched, or otherwise hurt by someone within the past year? If so, by whom?: No Do you feel safe in your current relationship?: Yes Is there a partner from a previous relationship who is making you feel unsafe now?: No Are you made to feel afraid or neglected: No Advance Directives: No Advance Directives Information Provided: Yes Do you have thoughts of harming others: None Do you have a plan to hurt others: No Plan Recently lost weight without trying: No How much weight loss: Not applicable Eating poorly because of decreased appetite: No Nutrition screen score: 0 Nutrition Risks: No Nutritional Risk Poor oral hygiene: No Physical Exam 2 Vital Signs: Vital Signs: Last Vital Signs Temp 97.6 F 05/15/24 20:00 Pulse 104 H 05/15/24 20:00 Resp 16 05/15/24 20:00 BP 133/86 05/15/24 20:00 Pulse Ox 96 05/15/24 20:00 O2 Del Method Room Air 05/15/24 20:00 BMI result Body Mass Index 28.2 Appearance: Alert. Oriented X3. No acute distress. Eyes: PERRLA, No Nystagmus ENT: Pharynx normal. Oral Mucosa moist Neck: Normal inspection. Neck supple. CVS: Normal heart rate and rhythm. Pulses normal. Respiratory: No respiratory distress. Equal air entry bilateral, no wheezing/rales/rhonchi Abdomen: Soft and nontender. Bowel sounds are present, no mass palpable, no CVA tenderness Skin: Skin warm and dry. Normal skin color. Normal skin turgor. Extremities: No lower extremity edema. No calf tenderness Psych: feel depressed denies current SI or HI no hallucination or delusion Neuro: Oriented X 3. No motor deficit. No sensory deficit.No cerebellar signs , cranial nerves II-XII intact Course Reevaluation(s) Reevaluation #1: DR. Helton's Progress note: 43-year-old with SI attempt, patient was medically cleared, VSS, patient now is under section 12, bed search is underway. Time: 09:23 Medications Administered Generic Name Dose Route Start Last Admin Trade Name Freq PRN Reason Stop Dose Admin Atenolol 25 mg 05/15/24 09:30 05/15/24 09:42 Atenolol 25 Mg Tablet PO 25 mg DAILY NADER Administration Protocol Bupropion HCl 150 mg 05/15/24 15:55 05/15/24 16:16 Bupropion Hcl Xl 150 Mg Tab.Er.24h PO 150 mg DAILY NADER Administration Buspirone HCl 30 mg 05/15/24 09:30 05/15/24 20:21 Buspirone Hcl 10 Mg Tablet PO 30 mg BID NADER Administration Duloxetine HCl 60 mg 05/15/24 09:30 05/15/24 20:21 Duloxetine Hcl 60 Mg Capsule.Dr PO 60 mg BID NADER Administration Hydroxyzine HCl 25 mg 05/15/24 12:25 05/15/24 16:16 Hydroxyzine Hcl 25 Mg Tablet PO 25 mg Q6H PRN Administration mild anxiety Metformin HCl 500 mg 05/15/24 09:30 05/15/24 09:42 Metformin Hcl 500 Mg Tablet PO 500 mg DAILY NADER Administration Trazodone HCl 50 mg 05/15/24 12:25 05/15/24 20:21 Trazodone Hcl 50 Mg Tablet PO 50 mg BEDTIME MRX1 PRN Administration Insomnia Discontinued Medications Generic Name Dose Route Start Last Admin Trade Name Freq PRN Reason Stop Dose Admin Aripiprazole 5 mg 05/15/24 09:30 05/15/24 09:42 Aripiprazole 5 Mg Tablet PO 5 mg DAILY NADER Administration Charcoal 50 gm 05/14/24 21:33 05/14/24 21:45 Activated Charcoal 50 Gm/240 Ml Oral.Susp PO 05/14/24 21:34 50 gm ONCE ONE Administration Medical Decision Making Medical Decision Making MDM Narrative: patient with increased depression suicidal ideation took extra tablets of cyclobenzaprine BuSpar duloxetine which are not toxic dose case discussed with poison control advised supportive treatment patient's repeat EKG also without any acute changes normal QTC interval patient is alert and awake vitals stable medically cleared to see care team Lab Data MDM Lab Attestation statement: I reviewed the patient's lab results. 05/14/24 21:57 05/15/24 12:49 Labs: Lab Results 05/14/24 05/14/24 05/14/24 Range/Units 21:26 21:57 22:04 WBC 10.0 (4.8-10.8) X10*3/uL RBC 4.75 (4.60-5.80) X10*6/uL Hgb 13.6 L (14.0-18.0) g/dl Hct 40.9 L (42.0-52.0) % MCV 86.1 (80.0-98.0) fL MCH 28.6 (27.0-33.0) pg MCHC 33.3 (31.0-36.0) g/dl RDW 12.8 (11.0-16.0) % Plt Count 310 (160-400) X10*3/uL MPV 10.1 (9.4-12.4) fL Immature Gran % (Auto) 0.7 H (0.0-0.4) % Neut % (Auto) 75.1 H (45-73) % Lymph % (Auto) 13.8 L (20-40) % [facility] % (Auto) 8.9 (2-11) % Eos % (Auto) 1.2 (0-4) % Baso % (Auto) 0.3 (0-2) % Lymph # (Auto) 1.4 (1.2-4.9) X10*3/uL [facility] # (Auto) 0.9 (0.1-1.2) X10*3/uL Eos # (Auto) 0.1 (0.0-0.4) X10*3/uL Baso # (Auto) 0.0 (0.0-0.2) X10*3/uL Abs Immat Gran (auto) 0.07 H (0.00-0.03) X10*3/uL Absolute Neuts (auto) 7.5 (2.0-8.3) x10*3/uL Absolute Nucleated RBC 0.000 (0.0-0.012) X10*3/uL Nucleated RBC % (auto) 0.0 (0.0-0.2) /100WBC PT 11.5 (10.9-12.4) SEC INR 1.0 (0.9-1.1) VBG pH 7.47 H (7.32-7.43) VBG pCO2 33 mmHg VBG pO2 96 mmHg VBG HCO3 24 (22-26) mmol/L VBG O2 Saturation 99.0 % VBG Base Excess 1.7 mmol/L Sodium 136 (135-145) mmol/L Potassium 3.6 (3.3-5.1) mmol/L Chloride 104 (96-108) mmol/L Carbon Dioxide 23 (22-29) mmol/L Anion Gap 13 (12-20) BUN 18 H (9-16) mg/dL Creatinine 0.93 (0.5-1.4) mg/dL Estim Creat Clear Calc 102.6 Estimated GFR > 60 Random Glucose 255 H (60-115) mg/dL Calcium 9.8 (8.4-10.2) mg/dL Magnesium 2.1 (1.6-2.6) mg/dL Total Bilirubin 0.2 (0.0-1.0) mg/dL AST 16 (5-37) U/L ALT 39 (0-40) U/L Alkaline Phosphatase 83 (39-117) U/L Troponin I High Sens < 2.7 (<3.5-35.0) ng/L Total Protein 6.5 (6.5-8.0) g/dL Albumin 4.0 (3.5-5.0) g/dL Urine Color Yellow Urine Appearance Clear Urine pH 5.5 (5.0-9.0) Ur Specific [place] 1.010 (1.005-1.025) Urine Protein Negative (Neg-Trace) mg/dL Urine Glucose (UA) >=1000 H (Negative) mg/dL Urine Ketones Negative (Negative) mg/dL Urine Blood Negative (Negative) Urine Nitrite Negative (Negative) Ur Leukocyte Esterase Negative (Negative) Urine RBC 0-2 (0-2) /HPF Urine WBC 0-5 (0-5) /HPF Ur Squamous Epith Cells 0-2 (0-2) /HPF Urine Bacteria None Seen (None Seen) Hyaline Casts 0-2 (0-2) /LPF Salicylates < 5.0 L (15-30) mg/dL Urine Opiates Screen Not Detected (Not Detect) Ur Buprenorphine Scrn Not Detected (Not Detect) ng/mL Ur Oxycodone Screen Not Detected (Not Detect) ng/mL Urine Methadone Screen Not Detected (Not Detect) ng/mL Urine Fentanyl Screen Not Detected (Not Detect) Acetaminophen < 3 (<30) mcg/mL Ur Barbiturates Screen Not Detected (Not Detect) Ur Phencyclidine Scrn Not Detected (Not Detect) Ur Amphetamines Screen Not Detected (Not Detect) U Benzodiazepines Scrn Not Detected (Not Detect) Urine Cocaine Screen Not Detected (Not Detect) U Marijuana (THC) Screen Not Detected (Not Detect) Ethyl Alcohol < 10 mg/dL Independent Interpretation I performed an independent interpretation of an: EKG Interpretation: normal sinus rhythm heart rate 95 beats per minute few PACs normal interval normal axis no acute STT wave changes no acute ischemia Discharge Plan Discharge Clinical Impression: Depressive disorder Patient Disposition: Admitted As Inpatient Interventions: Admission Worksheet (ED) Last Done: 05/15/24 12:11 Discharge Date/Time: 05/15/24 12:13
--- OUTSIDE RECORDS SUMMARY | 2024-05-14 22:03 | XMS_ITS | Clinical Summary ---
Author Organization [facility] Address [address] [place] [address] Phone Care Team Providers Care Pharmaceutical Compounding Supervisor Name Role Phone Physician, No Pcp Primary [...] day. Do not crush or chew. Active Surgical History Surgery Date Site/Laterality Comments HERNIA [...] on patient's age to complete this topic Insurance [employer] MEDICAID ADVANTAGE Care Teams Pharmaceutical Compounding Supervisor Relationship Specialty Start Date End Date Physician, No Pcp PCP - General 02/10/24
[2024-05-14 22:04] LABS: MANUAL DIFF FLAG NO
[2024-05-14 22:08] LABS: Basophils Percent Auto 0.3 % (0-2); Eosinophils Absolute Auto 0.1 X10*3/uL (0.0-0.4); Eosinophils Percent Auto 1.2 % (0-4); Hematocrit 40.9 % (42.0-52.0); Hemoglobin 13.6 g/dl (14.0-18.0); Imm Gran Abs Auto 0.07 X10*3/uL (0.00-0.03); Imm Gran Pct Auto 0.7 % (0.0-0.4); Lymphocytes Absolute Auto 1.4 X10*3/uL (1.2-4.9); Lymphocytes Percent Auto 13.8 % (20-40); Mean Corpuscular HGB Conc 33.3 g/dl (31.0-36.0); Mean Corpuscular Hemoglobin 28.6 pg (27.0-33.0); Mean Corpuscular Volume 86.1 fL (80.0-98.0); Mean Platelet Volume 10.1 fL (9.4-12.4); Monocytes Absolute Auto 0.9 X10*3/uL (0.1-1.2); Monocytes Percent Auto 8.9 % (2-11); Neutrophils Absolute Auto 7.5 x10*3/uL (2.0-8.3); Neutrophils Percent Auto 75.1 % (45-73); Platelet Count 310 X10*3/uL (160-400); Red Blood Count 4.75 X10*6/uL (4.60-5.80); Red Cell Distribution Width 12.8 % (11.0-16.0)
--- NOTE | 2024-05-14 22:11 | PC.NURSE ---
Spoke with Poison Control with update. Patient reported to this RN & Dr. Leonardo that he took the following medications at his home around 7pm today: Buspar (3 tablets) Cyclobenzaprine (3 tablets) Duloxetine (3 tablets) Ibuprofen 800mg Per poison control, no changes to orders or precautions. See previous note regarding recommendations. Report given to Colton BAUTISTA.
[2024-05-14 22:21] LABS: Prothrombin Time 11.5 SEC (10.9-12.4)
[2024-05-14 22:27] LABS: VBG Base Excess 1.7 mmol/L; VBG HCO3 24 mmol/L (22-26); VBG pCO2 33 mmHg; VBG pH 7.47 (7.32-7.43); VBG pO2 96 mmHg
[2024-05-14 22:32] LABS: Acetaminophen LAB < 3 mcg/mL (<30); Salicylate < 5.0 mg/dL (15-30)
[2024-05-14 22:32] LABS: Venous Blood Gas Refer to POC result
[2024-05-14 22:36] LABS: Alanine Aminotransferase 39 U/L (0-40); Alkaline Phosphatase 83 U/L (39-117); Anion Gap 13 (12-20); Aspartate Amino Transferase 16 U/L (5-37); Bilirubin Total 0.2 mg/dL (0.0-1.0); Blood Urea Nitrogen 18 mg/dL (9-16); Calcium 9.8 mg/dL (8.4-10.2); Carbon Dioxide 23 mmol/L (22-29); Chloride 104 mmol/L (96-108); Creatinine Clr Calc Pharmacy 102.6; Estimated Glomerular Filt Rate > 60; Ethanol < 10 mg/dL; Glucose Random 255 mg/dL (60-115); Potassium 3.6 mmol/L (3.3-5.1); Sodium 136 mmol/L (135-145); Total Protein 6.5 g/dL (6.5-8.0)
[2024-05-14 22:42] LABS: Troponin-I High Sensitivity < 2.7 ng/L (<3.5-35.0)
[2024-05-14 23:09] LABS: Magnesium 2.1 mg/dL (1.6-2.6)
[2024-05-14 23:12] LABS: Amphetamine Screen Urine Not Detected (Not Detect); Barbiturates, Urine Not Detected (Not Detect); Benzodiazepines Screen Urine Not Detected (Not Detect); Buprenorphine Scr Not Detected (Not Detect); Cannabinoid Screen Urine Not Detected (Not Detect); Cocaine Screen Urine Not Detected (Not Detect); Fentanyl, urine Not Detected (Not Detect); Methadone Screen, Urine Not Detected (Not Detect); Opiate Screen Urine Not Detected (Not Detect); Oxycodone Screen Urine Not Detected (Not Detect); Phencyclidine Screen Urine Not Detected (Not Detect)
--- NOTE | 2024-05-14 23:22 | PC.NURSE ---
This RN spoke with Ivis at poison control who was looking for update on pt lab results. Update provided only recommendation to supplement oral potassium to a level of 4.0. MD Leonardo and Colton primary RN notified.
--- NOTE | 2024-05-14 23:27 | ECG_ITS ---
Test Reason : OVERDOSED Blood Pressure : */* mmHG Vent. Rate : 89 BPM Atrial Rate : 89 BPM P-R Int : 174 ms QRS Dur : 94 ms QT Int : 348 ms P-R-T Axes : 63 66 54 degrees QTcB Int : 423 ms Sinus rhythm with Premature atrial complexes Otherwise normal ECG When compared with ECG of 14-May-2024 21:26, No significant change was found Referred By: John Adam Electronically Signed By: FABIANO BRITT
[2024-05-14 23:29] VITALS: BP 110/71; PULSE 89; RESP 16; TEMP 36.2; O2SAT 97
--- NOTE | 2024-05-15 01:02 | PC.NURSE ---
This senior copywriter assumed care of this Pt [id number]. Pt ambulated independently to POD with steady gait. Pt A&Ox3, requesting to see someone from care team. Pt updated on plan of care.
--- NOTE | 2024-05-15 01:27 | ECG_ITS ---
Test Reason : repeat ekg overdose Blood Pressure : */* mmHG Vent. Rate : 77 BPM Atrial Rate : 77 BPM P-R Int : 184 ms QRS Dur : 90 ms QT Int : 366 ms P-R-T Axes : 49 62 54 degrees QTcB Int : 414 ms Normal sinus rhythm Normal ECG When compared with ECG of 14-May-2024 23:24, Premature atrial complexes are no longer Present Referred By: John Adam Electronically Signed By: FABIANO BRITT
[2024-05-15 07:43] VITALS: BP 140/86; PULSE 95; RESP 16; TEMP 36.2; O2SAT 95
--- NOTE | 2024-05-15 08:49 | PC.NURSE ---
care team in speaking with the patient
[2024-05-15 09:42] VITALS: BP 140/86; PULSE 95
[2024-05-15] MEDS: DULoxetine HCl 60 MG CAPSULE.DR PO ×2 (09:42→20:21)
[2024-05-15] MEDS: metFORMIN HCl 500 MG TABLET PO (09:42)
[2024-05-15] MEDS: busPIRone HCl 10 MG TABLET 30 MG PO ×2 (09:42→20:21)
[2024-05-15] MEDS: atenoloL 25 MG TABLET PO (09:42)
[2024-05-15] MEDS: ARIPiprazole 5 MG TABLET PO (09:42)
--- NOTE | 2024-05-15 09:58 | MHC.CARE ---
Pt meets the criteria for IPLOC. Section 12 in chart. Provider in agreement.
--- NOTE | 2024-05-15 10:00 | PC.NURSE ---
patient a&ox3, ambulatory on unit, pt using phone calling family members. pt wanting to discharge is denying SI/HI. care team spoke with patient and wanting him to come inpt but pt is wanting to discharge and wants to speak with provider, plan of care ongoing.
[2024-05-15 12:50] VITALS: BP 133/86; PULSE 72; RESP 17; TEMP 36.3; O2SAT 98
[2024-05-15 13:39] LABS: Alanine Aminotransferase 41 U/L (0-40); Albumin Level 4.6 g/dL (3.5-5.0); Alkaline Phosphatase 72 U/L (39-117); Anion Gap 11 (12-20); Aspartate Amino Transferase 17 U/L (5-37); Bilirubin Total 0.4 mg/dL (0.0-1.0); Blood Urea Nitrogen 14 mg/dL (9-16); Calcium 9.8 mg/dL (8.4-10.2); Carbon Dioxide 29 mmol/L (22-29); Chloride 105 mmol/L (96-108); Creatinine Clr Calc Pharmacy 98.3; Estimated Glomerular Filt Rate > 60; Glucose Random 134 mg/dL (60-115); Potassium 3.7 mmol/L (3.3-5.1); Sodium 141 mmol/L (135-145); Total Protein 7.4 g/dL (6.5-8.0)
[2024-05-15 14:00] VITALS: BMI 29.8
[2024-05-15] MEDS: hydrOXYzine HCL 25 MG TABLET PO (16:16)
[2024-05-15] MEDS: buPROPion HCl XL 150 MG TAB.ER.24H PO (16:16)
--- NOTE | 2024-05-15 16:22 | P.HPPS_ITS ---
HPI Date of Service: 05/15/24 Chief Complaint: Crisis Sources of Information: patient interviewed, chart reviewed and crisis/core team assessment reviewed HPI Subjective Notes: [place] Warning, Conditional Voluntary and 3 Day Narrative: Patient is a 43-year-old male with history of MDD and PTSD, who arrived to [facility] due to intentional overdose of prescription medications in a suicide attempt secondary to increased life stressors. Per crisis report, patient was brought in on a section 12 from [facility] for an intentional overdose of prescription medication in a suicide attempt. Patient called 911 and told police, I just took a bunch to try to kill myself. I just want to end everything . Patient was tearful but cooperative. Patient reports he was assessed by crisis staff at [facility] 2 weeks ago for suicidal ideation but was discharged home. During crisis assessment, patient minimizing his attempt and denies he took the pills to end his life. Patient denied SI/HI/VH/AH. Patient reports having financial difficulties which are causing him distress. Denies substance use. U tox negative. Denies history of suicide attempts or self-injurious behavior. Denies any previous inpatient psychiatric hospitalizations. Collateral was obtained from patient's daughter who reported patient disclosed to her that he had ingested an unknown amount of his prescription medication in a suicide attempt and she advised him to immediately call 911, which he did. During admission assessment, patient presents alert and oriented x3. Calm and cooperative. Patient reports depression and anxiety ; patient initially denying his actions were suicide attempt and kept stating, I don't remember having that conversation with the police . However, patient eventually was honest and stated, he felt stressed in the moment and it was a suicide attempt due to financial stress . Patient stated, everything stressed me out. My daughter coming out of half-way, getting behind on rent, my food stamps being cut, everything hit me . Patient reports he would like his medications adjusted and a referral to an outpatient therapist. Patient reports he feels he sleeps too much . Pt currently denies SI/HI/VH/AH. He signed 3-day notice which is up on 05/18/24. Past Psychiatric History: First inpatient psychiatric hospitalization. Outpatient prescriber: Jamilah Garcia Patient does not have outpatient therapist at this time. Denies history of SA/SIB. Medical Evaluation Reviewed: Yes [facility] Surgical History History of back surgery Family History: Unknown Social History: Single. Lives with 22-year-old daughter. Unemployed. Substance History: Denies. Utox negative. Trauma History: Yes Diagnostics Vital Signs (24Hr): Vital Signs - 24 hr 05/14/24 21:14 05/14/24 23:29 05/15/24 07:43 Temperature 98.5 F 97.2 F 97.2 F Pulse Rate 93 89 95 Respiratory Rate 16 16 16 Blood Pressure 158/77 H 110/71 140/86 H Pulse Oximetry 96 97 95 Oxygen Delivery Method Room Air Room Air Room Air 05/15/24 09:42 05/15/24 12:50 Temperature 97.3 F Pulse Rate 95 72 Respiratory Rate 17 Blood Pressure 140/86 H 133/86 Pulse Oximetry 98 Oxygen Delivery Method Room Air BMI result Body Mass Index 29.8 Labs 05/14/24 21:57 05/15/24 12:49 Labs: Laboratory Results - last 48 hr 05/14/24 05/14/24 05/14/24 21:26 21:57 22:04 WBC 10.0 RBC 4.75 Hgb 13.6 L Hct 40.9 L MCV 86.1 MCH 28.6 MCHC 33.3 RDW 12.8 Plt Count 310 MPV 10.1 Immature Gran % (Auto) 0.7 H Neut % (Auto) 75.1 H Lymph % (Auto) 13.8 L [place] % (Auto) 8.9 Eos % (Auto) 1.2 Baso % (Auto) 0.3 Lymph # (Auto) 1.4 [place] # (Auto) 0.9 Eos # (Auto) 0.1 Baso # (Auto) 0.0 Abs Immat Gran (auto) 0.07 H Absolute Neuts (auto) 7.5 Absolute Nucleated RBC 0.000 Nucleated RBC % (auto) 0.0 PT 11.5 INR 1.0 VBG pH 7.47 H VBG pCO2 33 VBG pO2 96 VBG HCO3 24 VBG O2 Saturation 99.0 VBG Base Excess 1.7 Sodium 136 Potassium 3.6 Chloride 104 Carbon Dioxide 23 Anion Gap 13 BUN 18 H Creatinine 0.93 Estim Creat Clear Calc 102.6 Estimated GFR > 60 Random Glucose 255 H Calcium 9.8 Magnesium 2.1 Total Bilirubin 0.2 AST 16 ALT 39 Alkaline Phosphatase 83 Troponin I High Sens < 2.7 Total Protein 6.5 Albumin 4.0 Urine Color Yellow Urine Appearance Clear Urine pH 5.5 Ur Specific [place] 1.010 Urine Protein Negative Urine Glucose (UA) >=1000 H Urine Ketones Negative Urine Blood Negative Urine Nitrite Negative Ur Leukocyte Esterase Negative Urine RBC 0-2 Urine WBC 0-5 Ur Squamous Epith Cells 0-2 Urine Bacteria None Seen Hyaline Casts 0-2 Salicylates < 5.0 L Urine Opiates Screen Not Detected Ur Buprenorphine Scrn Not Detected Ur Oxycodone Screen Not Detected Urine Methadone Screen Not Detected Urine Fentanyl Screen Not Detected Acetaminophen < 3 Ur Barbiturates Screen Not Detected Ur Phencyclidine Scrn Not Detected Ur Amphetamines Screen Not Detected U Benzodiazepines Scrn Not Detected Urine Cocaine Screen Not Detected U Marijuana (THC) Screen Not Detected Ethyl Alcohol < 10 05/15/24 12:49 WBC RBC Hgb Hct MCV MCH MCHC RDW Plt Count MPV Immature Gran % (Auto) Neut % (Auto) Lymph % (Auto) [place] % (Auto) Eos % (Auto) Baso % (Auto) Lymph # (Auto) [place] # (Auto) Eos # (Auto) Baso # (Auto) Abs Immat Gran (auto) Absolute Neuts (auto) Absolute Nucleated RBC Nucleated RBC % (auto) PT INR VBG pH VBG pCO2 VBG pO2 VBG HCO3 VBG O2 Saturation VBG Base Excess Sodium 141 Potassium 3.7 Chloride 105 Carbon Dioxide 29 Anion Gap 11 L BUN 14 Creatinine 0.97 Estim Creat Clear Calc 98.3 Estimated GFR > 60 Random Glucose 134 H Calcium 9.8 Magnesium Total Bilirubin 0.4 AST 17 ALT 41 H Alkaline Phosphatase 72 Troponin I High Sens Total Protein 7.4 Albumin 4.6 Urine Color Urine Appearance Urine pH Ur Specific [place] Urine Protein Urine Glucose (UA) Urine Ketones Urine Blood Urine Nitrite Ur Leukocyte Esterase Urine RBC Urine WBC Ur Squamous Epith Cells Urine Bacteria Hyaline Casts Salicylates Urine Opiates Screen Ur Buprenorphine Scrn Ur Oxycodone Screen Urine Methadone Screen Urine Fentanyl Screen Acetaminophen Ur Barbiturates Screen Ur Phencyclidine Scrn Ur Amphetamines Screen U Benzodiazepines Scrn Urine Cocaine Screen U Marijuana (THC) Screen Ethyl Alcohol Meds/Allergies Meds Home Medications ?Medication ?Instructions ?Recorded ?Confirmed ?Type aripiprazole 5 mg tablet 5 mg PO DAILY 05/15/24 05/15/24 History atenolol 25 mg tablet 25 mg PO DAILY 05/15/24 05/15/24 History buspirone 30 mg tablet 30 mg PO BID 05/15/24 05/15/24 History cyclobenzaprine 10 mg tablet 10 mg PO BEDTIME PRN Pain 05/15/24 05/15/24 History duloxetine 60 mg capsule,delayed 60 mg PO BID 05/15/24 05/15/24 History release metformin 500 mg tablet 500 mg PO DAILY 05/15/24 05/15/24 History Allergies Allergies Allergy/AdvReac Type Severity Reaction Status Date / Time aripiprazole [From Abilify] Allergy Intermediate Rash Verified 05/14/24 21:16 Mental Status Exam Mental Status Exam Narrative: Pt is alert and oriented; behavior is cooperative and calm; dressed in casual attire; mood is described as anxious and depressed ; eye contact appropriate; Speech is normal rate, volume and not pressured; thought process is organized and goal directed; Thought content is on tx and discharge; otherwise pertinent to relevant topics and without any delusional content, paranoid ideations or grandiosity; denies SI/HI/VH/AH. Assessment & Plan Assessment & Plan (1) MDD (major depressive disorder), recurrent episode, moderate: Status: Acute Code(s): F33.1 - Major depressive disorder, recurrent, moderate (2) PTSD (post-traumatic stress disorder): Status: Acute Code(s): F43.10 - Post-traumatic stress disorder, unspecified Plan Patient is a 43-year-old male with history of MDD who arrived to [facility] due to intentional overdose of prescription medications in a suicide attempt secondary to increased life stressors. Plan: /3 day notice 15 minute safety checks Continue home medications Obtain collateral Referral to outpatient therapist Encourage groups Discharge planning Patient educated on: diagnosis and medication risk/benefits Reason for continued inpatient stay Substantial Risk for: harm to self and med/psych decompensation Statement Statement: I have reviewed the history and physical and performed a pertinent examination on my patient. No changes have occurred unless specified. If the History and Physical was not performed prior to admission, the Hospitalist's service will be consulted for completing the admission physical. Time Spent With Patient Time: Total time managing care of this patient today _60___ minutes.
--- NOTE | 2024-05-15 16:32 | PC.NURSE ---
Patient was admitted at 1245 on a CV from the ED POD for treatment of Unspecified Depressive Disorder. Patient had called 911 and told police he had overdosed on a bunch of pills ,he was then placed on a Section 12 and sent to [facility]. Per crisis eval (ad the patients daughter), pt was assessed by the crisis team at [facility] within the last 2 weeks for SI and was discharged home. Upon admission assessment, patient is A&Ox4 with linear, organized thought process. He is pleasant calm and cooperative during assessment, though repetitively stating I'm trying to go home, will they discharge me? . Patient denies current SI and stated I wasn't suicidal, I called the police to tell them I overdosed but it was an accident. I don't want to hurt myself so really I don't need to be here . Patient reports sleep and appetite are good, tox screen negative. Patient is currently unemployed, states he's been struggling with obtaining his social security check which has been stressful and pt's daughter reports recently being released from group home, (which she believes has been hard for her father as well). Patient states his goal for discharge is to attend the interview for a job lined up, and get everything sorted out . He has been placed on 15 minute checks for safety.
[2024-05-15 20:00] VITALS: BP 133/86; PULSE 104; RESP 16; TEMP 36.4; O2SAT 96
[2024-05-15] MEDS: traZODone HCL 50 MG TABLET PO (20:21)
[2024-05-16 07:57] VITALS: BP 131/77; PULSE 89; RESP 16; TEMP 36.4; O2SAT 96
[2024-05-16] MEDS: atenoloL 25 MG TABLET PO (08:13)
[2024-05-16] MEDS: buPROPion HCl XL 150 MG TAB.ER.24H PO (08:13)
[2024-05-16] MEDS: metFORMIN HCl 500 MG TABLET PO (08:13)
[2024-05-16] MEDS: busPIRone HCl 10 MG TABLET 30 MG PO (08:13)
[2024-05-16] MEDS: DULoxetine HCl 60 MG CAPSULE.DR PO ×2 (08:14→21:20)
[2024-05-16] MEDS: Loratadine 10 MG TABLET PO (08:14)
[2024-05-16] MEDS: hydrOXYzine HCL 25 MG TABLET PO ×3 (08:17→21:20)
[2024-05-16 08:25] LABS: Estimated Average Glucose 131 mg/dL; Hemoglobin A1C 169.5117 umol/L; Hemoglobin A1c % 6.2 % (<6.0); Total Hemoglobin (HGBA1C) 3865.7911 umol/L
[2024-05-16 08:27] LABS: Cholesterol 178 mg/dL (<200); HDL Cholesterol 44 mg/dL (>40); LDL Cholesterol Calculated 105 mg/dL (<100); Triglycerides 145 mg/dL (<150)
--- NOTE | 2024-05-16 13:01 | P.DS_ITS ---
DS: Providers Provider Date of Service: 05/16/24 Date of admission: 05/15/24 11:53 Date of discharge: 05/17/24 Primary care physician: Unknown Physician DS: Diagnosis Discharge Diagnosis (1) MDD (major depressive disorder), recurrent episode, moderate: Status: Acute (2) PTSD (post-traumatic stress disorder): Status: Acute DS: Medications Discharge Medications Home Medications: Home Medications ?Medication ?Instructions ?Recorded ?Confirmed duloxetine 60 mg capsule,delayed 60 mg PO BID 05/15/24 05/15/24 release metformin 500 mg tablet 500 mg PO DAILY 05/15/24 05/15/24 Previous Rx's ?Medication ?Instructions ?Recorded meclizine 12.5 mg tablet 12.5 mg PO TID PRN dizziness #10 05/30/23 tabs atenolol 25 mg tablet 25 mg PO DAILY 30 days #30 tabs 05/16/24 bupropion HCl 150 mg 24 hr tablet, 150 mg PO DAILY 30 days #30 tabs 05/16/24 extended release hydroxyzine HCl 25 mg tablet 25 mg PO BID PRN mild anxiety 30 05/16/24 days #60 tabs loratadine 10 mg tablet 10 mg PO DAILY 30 days #30 tabs 05/16/24 trazodone 50 mg tablet 50 mg PO BEDTIME PRN Insomnia 30 05/16/24 days #30 tabs Mental Status Exam Mental Status Exam Narrative: Pt is alert and oriented; behavior is cooperative and calm; dressed in casual attire; mood is described as excellent; eye contact appropriate; Speech is normal rate, volume and not pressured; thought process is organized and goal directed; Thought content is on tx and discharge; otherwise pertinent to relevant topics and without any delusional content, paranoid ideations or grandiosity; denies SI/HI/VH/AH. Data Data Completed and Pending Completed studies during hospitalization [Text1]: 05/14/24 05/14/24 05/14/24 21:26 21:57 22:04 WBC 10.0 RBC 4.75 Hgb 13.6 L Hct 40.9 L MCV 86.1 MCH 28.6 MCHC 33.3 RDW 12.8 Plt Count 310 MPV 10.1 Immature Gran % (Auto) 0.7 H Neut % (Auto) 75.1 H Lymph % (Auto) 13.8 L [place] % (Auto) 8.9 Eos % (Auto) 1.2 Baso % (Auto) 0.3 Lymph # (Auto) 1.4 [place] # (Auto) 0.9 Eos # (Auto) 0.1 Baso # (Auto) 0.0 Abs Immat Gran (auto) 0.07 H Absolute Neuts (auto) 7.5 Absolute Nucleated RBC 0.000 Nucleated RBC % (auto) 0.0 PT 11.5 INR 1.0 VBG pH 7.47 H VBG pCO2 33 VBG pO2 96 VBG HCO3 24 VBG O2 Saturation 99.0 VBG Base Excess 1.7 Sodium 136 Potassium 3.6 Chloride 104 Carbon Dioxide 23 Anion Gap 13 BUN 18 H Creatinine 0.93 Estim Creat Clear Calc 102.6 Estimated GFR > 60 Random Glucose 255 H Estimat Average Glucose Hemoglobin A1c % Calcium 9.8 Magnesium 2.1 Total Bilirubin 0.2 AST 16 ALT 39 Alkaline Phosphatase 83 Troponin I High Sens < 2.7 Total Protein 6.5 Albumin 4.0 Triglycerides Cholesterol LDL Cholesterol, Calc HDL Cholesterol Urine Color Yellow Urine Appearance Clear Urine pH 5.5 Ur Specific [place] 1.010 Urine Protein Negative Urine Glucose (UA) >=1000 H Urine Ketones Negative Urine Blood Negative Urine Nitrite Negative Ur Leukocyte Esterase Negative Urine RBC 0-2 Urine WBC 0-5 Ur Squamous Epith Cells 0-2 Urine Bacteria None Seen Hyaline Casts 0-2 Salicylates < 5.0 L Urine Opiates Screen Not Detected Ur Buprenorphine Scrn Not Detected Ur Oxycodone Screen Not Detected Urine Methadone Screen Not Detected Urine Fentanyl Screen Not Detected Acetaminophen < 3 Ur Barbiturates Screen Not Detected Ur Phencyclidine Scrn Not Detected Ur Amphetamines Screen Not Detected U Benzodiazepines Scrn Not Detected Urine Cocaine Screen Not Detected U Marijuana (THC) Screen Not Detected Ethyl Alcohol < 10 05/15/24 05/16/24 12:49 07:34 WBC RBC Hgb Hct MCV MCH MCHC RDW Plt Count MPV Immature Gran % (Auto) Neut % (Auto) Lymph % (Auto) [place] % (Auto) Eos % (Auto) Baso % (Auto) Lymph # (Auto) [place] # (Auto) Eos # (Auto) Baso # (Auto) Abs Immat Gran (auto) Absolute Neuts (auto) Absolute Nucleated RBC Nucleated RBC % (auto) PT INR VBG pH VBG pCO2 VBG pO2 VBG HCO3 VBG O2 Saturation VBG Base Excess Sodium 141 Potassium 3.7 Chloride 105 Carbon Dioxide 29 Anion Gap 11 L BUN 14 Creatinine 0.97 Estim Creat Clear Calc 98.3 Estimated GFR > 60 Random Glucose 134 H Estimat Average Glucose 131 Hemoglobin A1c % 6.2 H Calcium 9.8 Magnesium Total Bilirubin 0.4 AST 17 ALT 41 H Alkaline Phosphatase 72 Troponin I High Sens Total Protein 7.4 Albumin 4.6 Triglycerides 145 Cholesterol 178 LDL Cholesterol, Calc 105 H HDL Cholesterol 44 Urine Color Urine Appearance Urine pH Ur Specific [place] Urine Protein Urine Glucose (UA) Urine Ketones Urine Blood Urine Nitrite Ur Leukocyte Esterase Urine RBC Urine WBC Ur Squamous Epith Cells Urine Bacteria Hyaline Casts Salicylates Urine Opiates Screen Ur Buprenorphine Scrn Ur Oxycodone Screen Urine Methadone Screen Urine Fentanyl Screen Acetaminophen Ur Barbiturates Screen Ur Phencyclidine Scrn Ur Amphetamines Screen U Benzodiazepines Scrn Urine Cocaine Screen U Marijuana (THC) Screen Ethyl Alcohol DS: Summary Hospital Course Hospital Course: per 05/15 admission note: HPI Subjective Notes: [place] Warning, Conditional Voluntary and 3 Day Narrative: Patient is a 43-year-old male with history of MDD and PTSD, who arrived to [facility] due to intentional overdose of prescription medications in a suicide attempt secondary to increased life stressors. Per crisis report, patient was brought in on a section 12 from [facility] for an intentional overdose of prescription medication in a suicide attempt. Patient called 911 and told police, I just took a bunch to try to kill myself. I just want to end everything . Patient was tearful but cooperative. Patient reports he was assessed by crisis staff at [facility] 2 weeks ago for suicidal ideation but was discharged home. During crisis assessment, patient minimizing his attempt and denies he took the pills to end his life. Patient denied SI/HI/VH/AH. Patient reports having financial difficulties which are causing him distress. Denies substance use. U tox negative. Denies history of suicide attempts or self-injurious behavior. Denies any previous inpatient psychiatric hospitalizations. Collateral was obtained from patient's daughter who reported patient disclosed to her that he had ingested an unknown amount of his prescription medication in a suicide attempt and she advised him to immediately call 911, which he did. During admission assessment, patient presents alert and oriented x3. Calm and c ooperative. Patient reports depression and anxiety ; patient initially denying his actions were suicide attempt and kept stating, I don't remember having that conversation with the police . However, patient eventually was honest and stated, he felt stressed in the moment and it was a suicide attempt due to financial stress . Patient stated, everything stressed me out. My daughter coming out of correction, getting behind on rent, my food stamps being cut, everything hit me . Patient reports he would like his medications adjusted and a referral to an outpatient therapist. Patient reports he feels he sleeps too much . Pt currently denies SI/HI/VH/AH. He signed 3-day notice which is up on 05/18/24. Past Psychiatric History: First inpatient psychiatric hospitalization. Outpatient prescriber: Jamilah Garcia Patient does not have outpatient therapist at this time. Denies history of SA/SIB. [facility] History of back surgery Family History: Unknown Social History: Single. Lives with 22-year-old daughter. Unemployed. Substance History: Denies. Utox negative. Trauma History: Yes Precis: Patient is a 43-year-old male with history of MDD who arrived to [facility] due to intentional overdose of prescription medications in a suicide attempt secondary to increased life stressors. 05/15: /3 day notice. Continue home medications. Obtain collateral. Referral to outpatient therapist. Encourage groups. Discharge planning. 05/16: denies SI, states he has a lead on a job and a car for his daughter. feeling ready for discharge and to take on his challenges, was just feeling overwhelmed and did something impulsive and stupid. meds reviewed, reconciled, prescribed. planning to discharge tomorrow. 05/17: stable overnight, safe. discharged as per plan. Time Spent with Patient Time attestation: Total time managing care of this patient today __35__ minutes. Discharge Plan Discharge Anticipated Discharge Date/Time: 05/17/24 10:30 Patient Disposition: Home, Self-Care Discharge Diagnosis: PTSD, Chronic Major Depressive Disorder Referrals: Jamilah Garcia NP (Psychiatry) [Other] - 1 Week (*Please reach out to your prescriber regarding a follow up appointment directly through the patient portal. ) Cristobal Jane (Therapy) [Other] - 05/21/24 12:00 pm (IN OFFICE APPOINTMENT -Please arrive fifteen minutes early to your appointment in order to fill out necessary paperwork. Please bring your insurance card with you. ) [facility] [Provider Group] - 1 Week (05-16-24 Your primary care provider will be contacting you with the date and time of your follow up appt. fax [phone]) Discharge Medications: New trazodone 50 mg Tablet 50 mg PO BEDTIME PRN (Reason: Insomnia) 30 Days Qty: 30 0RF hydroxyzine HCl 25 mg Tablet 25 mg PO BID PRN (Reason: mild anxiety) 30 Days Qty: 60 0RF loratadine 10 mg Tablet 10 mg PO DAILY 30 Days Qty: 30 0RF bupropion HCl 150 mg Tablet Extended Release 24 Hr 150 mg PO DAILY 30 Days Qty: 30 0RF Continued meclizine 12.5 mg tablet 12.5 mg PO TID PRN (Reason: dizziness) Qty: 10 0RF metformin 500 mg tablet 500 mg PO DAILY duloxetine 60 mg capsule,delayed release(DR/EC) 60 mg PO BID atenolol 25 mg tablet 25 mg PO DAILY 30 Days Qty: 30 0RF Discontinued prednisone 20 mg tablet 40 mg PO DAILY 5 Days Qty: 10 0RF albuterol sulfate [ProAir HFA] 90 mcg/actuation HFA aerosol inhaler 2 puff inhalation Q6H PRN (Reason: wheezing) Qty: 6.7 0RF Patient Comments: pt does not use cephalexin 500 mg capsule 500 mg PO QID Qty: 28 0RF cyclobenzaprine 10 mg tablet 10 mg PO BEDTIME PRN (Reason: Pain) buspirone 30 mg tablet 30 mg PO BID aripiprazole 5 mg tablet 5 mg PO DAILY Discharge Orders: Discharge Order (Routine); Ordered 05/17/24 Ordered By: Tonny Anand Diet: Advance to usual diet Activity on Discharge: As tolerated Stand Alone Forms: Patient Portal Discharge page, Community Support Print Language: Scottish Care Plan Goals: remain safe and stable in the outpatient treatment setting Health Concerns: none Plan of Treatment: take medications as prescribed, attend appointments as scheduled Assessment: not at imminent risk of harm to self or others Discharge Date/Time: 05/17/24 10:30
[2024-05-16 20:00] VITALS: BP 118/79; PULSE 110; RESP 16; TEMP 36.3; O2SAT 95
[2024-05-16 21:13] LABS: Glucose, Whole Blood 131 mg/dL (60-115)
[2024-05-16] MEDS: traZODone HCL 50 MG TABLET PO (21:20)
[2024-05-17 07:51] LABS: Glucose, Whole Blood 126 mg/dL (60-115)
[2024-05-17 08:00] VITALS: BP 132/81; PULSE 118; RESP 16; TEMP 36.8; O2SAT 98
[2024-05-17] MEDS: buPROPion HCl XL 150 MG TAB.ER.24H PO (08:29)
[2024-05-17] MEDS: atenoloL 25 MG TABLET PO (08:29)
[2024-05-17] MEDS: DULoxetine HCl 60 MG CAPSULE.DR PO (08:29)
[2024-05-17] MEDS: Loratadine 10 MG TABLET PO (08:29)
[2024-05-17] MEDS: metFORMIN HCl 500 MG TABLET PO (08:29)
[2024-05-17] MEDS: hydrOXYzine HCL 25 MG TABLET PO (08:34)
== END 2024-05-17 10:30 | disposition home or self-care (01) | DRG 751 ==
LOC: HO.ED 05-15 11:58 → HO.PADLT16 05-15 11:59
PROVIDERS: Psychiatry & Neurology Psychiatry; Admitting Provider Registered Nurse; Emergency Provider Internal Medicine; Visit Provider Psychiatry & Neurology Psychiatry
DX: F33.1 Major depressive disorder, recurrent, moderate (principal); F43.12 Post-traumatic stress disorder, chronic; T43.212A Poisoning by selective serotonin and norepinephrine reuptake inhibitors, intentional self-harm, initial encounter; T48.1X2A Poisoning by skeletal muscle relaxants [neuromuscular blocking agents], intentional self-harm, initial encounter; T43.592A Poisoning by other antipsychotics and neuroleptics, intentional self-harm, initial encounter; Z56.0 Unemployment, unspecified; Z79.84 Long term (current) use of oral hypoglycemic drugs; Z79.899 Other long term (current) drug therapy
CPT/HCPCS: 36415; 80053; 80061; 80143; 80179; 80307; 81001; 82803; 82947; 83036; 83735; 84484; 85025; 85610; 93005; 99285; S9485

== ENCOUNTER → 2024-05-14 21:26 | Outpatient (BNV) | payer OTHER, SELFPAY | PROVIDERS: Admitting Provider Registered Nurse; Emergency Provider Internal Medicine; Visit Provider Internal Medicine | DX: I49.1 Atrial premature depolarization (principal) | CPT/HCPCS: 93010 ==

== ENCOUNTER → 2024-05-15 01:27 | Outpatient (BNV) | payer OTHER, SELFPAY | PROVIDERS: Admitting Provider Registered Nurse; Emergency Provider Internal Medicine; Responsible Provider Registered Nurse; Visit Provider Internal Medicine | DX: T50.901A Poisoning by unspecified drugs, medicaments and biological substances, accidental (unintentional), initial encounter (principal) | CPT/HCPCS: 93010 ==

== ENCOUNTER → 2024-05-15 11:53 | Outpatient (BNV) | payer OTHER, SELFPAY | PROVIDERS: Admitting Provider Registered Nurse; Emergency Provider Internal Medicine; Visit Provider Psychiatry & Neurology Psychiatry | DX: F33.1 Major depressive disorder, recurrent, moderate (principal); F43.11 Post-traumatic stress disorder, acute | CPT/HCPCS: 99233 ==